=== PATIENT | female | born 1975 | race Caucasian/White ===

== ENCOUNTER 2018-09-13 21:48 | Inpatient (IN) | payer BC ==
[~2018-09-13] VITALS: Ht 157.5 cm; Wt 85.5 kg
[2018-09-13 22:00] VITALS: Ht 157.5 cm; Wt 85.5 kg
[2018-09-14] VITALS (41 sets, daily range): BP systolic 116–166; BP diastolic 67–91; PULSE 60–133; RESP 10–28
[2018-09-14] MEDS ORDERED: ONDANSETRON (ODT) 4 MG TAB ODT STA (01:08)
[2018-09-14] MEDS ORDERED: morphine 4 MG/ML VIAL IM STA (01:08)
[2018-09-14] MEDS ORDERED: morphine 4 MG/ML VIAL IV STA ×2 (01:15→04:36)
[2018-09-14] MEDS ORDERED: ONDANSETRON 4 MG INJ IV STA (01:15)
[2018-09-14] MEDS ORDERED: DEXAMETHASONE 10 MG/ML 1 ML INJ IM ONE (01:30)
--- NOTE | 2018-09-14 04:29 | ERD ---
ER Documentation Chief Complaint Chief Complaint low back pain radiating to both legs, worse x 4 days HPI 43-year-old female with past medical history of back surgery, hyperlipidemia, migraine presents for low back pain x4 days. States that the pain is 10 out of 10, described as sharp and constant. The pain is worse with movement. There is also radiation to her bilateral lower legs. She states that she sees Dr. Zamorano, neurosurgery. She called him and it was suggested that she come to the ER. She denies any fevers or chills. Denies any abdominal pain nausea or vomiting. She further denies any recent back procedures, denies recent infection, denies history of cancer. She denies loss of bowel bladder function. She has prescriptions for Percocet at home for which she has been taking however she states it is not helping. No other modifying factors noted, no other treatments tried at home. ROS All systems reviewed and are negative except as per history of present illness. Allergies Allergies: Coded Allergies: No Known Allergy (Unverified , 09/13/18) PMhx/Soc History of Surgery: Yes (2 BACK SX, HYST, L. KNEE, B. CARPAL TUNNEL) Anesthesia Reaction: No Hx Neurological Disorder: Yes (TIA) Hx Respiratory Disorders: No Hx Cardiac Disorders: Yes (HIGH CHOL) Hx Psychiatric Problems: No Hx Miscellaneous Medical Probl: No Hx Alcohol Use: No Hx Substance Use: No Hx Tobacco Use: No Smoking Status: Never smoker FmHx Family History: No coronary disease Physical Exam Vitals Vital Signs Date Temp Pulse Resp B/P (MAP) Pulse Ox O2 O2 Flow FiO2 Time Delivery Rate 09/14/18 64 16 122/89 100 Room Air 05:35 (100) 09/14/18 98.2 78 16 115/69 97 Room Air 02:49 (84) 09/13/18 98.2 97 18 138/88 97 22:00 (105) Physical Exam Const: No acute distress Neck: Full range of motion. No meningismus. no midline tenderness Resp: Clear to auscultation bilaterally Cardio: Regular rate and rhythm, no murmurs, bilateral radial and dorsalis pedis pulses intact and equal Abd: Soft, non tender, non distended. Normal bowel sounds, no abdominal bruit noted Skin: No petechiae or rashes Back: There is diffuse tenderness palpation of the lumbar spine Ext: No cyanosis, or edema, 5/5 muscle strength bilateral upper and lower extremities Neur: Awake and alert, bilateral upper and lower extremity sensation intact Psych: Normal Mood and Affect Result Diagram: 09/14/18 0123 09/14/18 0123 Results 24 hrs Laboratory Tests Test 09/14/18 01:23 White Blood Count 11.8 10^3/ul Red Blood Count 4.42 10^6/ul Hemoglobin 13.2 g/dl Hematocrit 40.0 % Mean Corpuscular Volume 90.5 fl Mean Corpuscular Hemoglobin 29.9 pg Mean Corpuscular Hemoglobin Concent 33.0 g/dl Red Cell Distribution Width 12.6 % Platelet Count 319 10^3/UL Mean Platelet Volume 9.9 fl Immature Granulocytes % 0.300 % Neutrophils % 51.5 % Lymphocytes % 37.9 % Monocytes % 6.6 % Eosinophils % 2.9 % Basophils % 0.8 % Nucleated Red Blood Cells % 0.0 /100WBC Immature Granulocytes # 0.040 10^3/ul Neutrophils # 6.1 10^3/ul Lymphocytes # 4.5 10^3/ul Monocytes # 0.8 10^3/ul Eosinophils # 0.3 10^3/ul Basophils # 0.1 10^3/ul Nucleated Red Blood Cells # 0.0 10^3/ul Sodium Level 145 mmol/L Potassium Level 3.8 mmol/L Chloride Level 106 mmol/L Carbon Dioxide Level 28 mmol/L Anion Gap 11 Blood Urea Nitrogen 18 mg/dl Creatinine 0.78 mg/dl Est Glomerular Filtrat Rate mL/min > 60 mL/min Glucose Level 105 mg/dl Calcium Level 9.7 mg/dl Total Bilirubin 0.4 mg/dl Direct Bilirubin 0.00 mg/dl Indirect Bilirubin 0.4 mg/dl Aspartate Amino Transf (AST/SGOT) 34 IU/L Alanine Aminotransferase (ALT/SGPT) 31 IU/L Alkaline Phosphatase 109 IU/L Total Protein 8.2 g/dl Albumin 4.7 g/dl Globulin 3.50 g/dl Albumin/Globulin Ratio 1.34 Current Medications Medications Dose Sig/Rosa Start Time Status Last (Trade) Ordered Route PRN Stop Time Admin Dose Reason Admin Morphine 4 mg ONCE STAT 09/14/18 DC Sulfate IM 01:08 (morphine) 09/14/18 04:37 Ondansetron 4 mg ONCE STAT 09/14/18 DC HCl (Zofran ODT 01:08 Odt) 09/14/18 01:16 10 mg ONCE ONCE 09/14/18 DC Dexamethasone IM 01:30 (Decadron) 09/14/18 01:30 Morphine 4 mg ONCE STAT 09/14/18 DC 09/14/18 Sulfate IV 01:15 01:24 (morphine) 09/14/18 01:17 Ondansetron 4 mg ONCE STAT 09/14/18 DC 09/14/18 HCl (Zofran IV 01:15 01:24 Inj) 09/14/18 01:17 Morphine 4 mg ONCE STAT 09/14/18 DC 09/14/18 Sulfate IV 04:36 04:40 (morphine) 09/14/18 04:37 Ondansetron 4 mg BRIDGE ORDER 09/14/18 HCl (Zofran PRN IV 05:00 Inj) NAUSEA/VOMITI 09/15/18 04:59 NG 650 mg ER BRIDGE 09/14/18 Acetaminophen PRN PO 05:00 (Tylenol .MILD PAIN 09/15/18 04:59 Tab) 1-3 OR TEMP Procedures/MDM Medical Decision Making: Differential diagnosis includes but not limited to muscle strain, ligamentous sprain, epidural abscess, osteomyelitis, osteoarthritis, herniated disc, compression fracture, aortic aneurysm, kidney stone, pyelonephritis, pancreatitis. Patient appeared well on physical examination. Nontoxic appearing. No recent back procedure, therefore low suspicion for epidural abscess No recent infection, therefore low suspicion for osteomyelitis No trauma, therefore low suspicion for fracture No chest pain, abdominal pain and no pulse deficits noted, therefore low suspicion for aortic dissection or pancreatitis No flank pain or fever to suggest pyelonephritis or kidney stone Lab: CBC: no e/o of severe anemia, WBC mildly elevated at 11 CMP: no e/o severe acidosis, alkalosis, renal failure, diabetic ketoacidosis, liver disease ED course: Patient was given morphine, zofran and steroid Symptoms improved with treatment however patient required multiple doses of IV pain medication. Case was discussed with Dr. Zamorano neurosurgeon who want to admitted for pain control Hospitalist Dr. Llanos contacted and agreed to admit patient for further care. Disclaimer: Inadvertent spelling and grammatical errors are likely due to EHR/dictation software use and do not reflect on the overall quality of patient care. Also, please note that the electronic time recorded on this note does not necessarily reflect the actual time of the patient encounter. KELSIE ALVES DO Sep 14, 2018 04:29
[2018-09-14] MEDS ORDERED: ACETAMINOPHEN 325 MG TAB PO PRN (05:00)
[2018-09-14] MEDS ORDERED: ONDANSETRON 4 MG INJ IV PRN ×2 (05:00→11:30)
[2018-09-14] MEDS ORDERED: SEVOFLURANE 15 MIN ONE (07:00)
--- NOTE | 2018-09-14 09:32 | PREAC ---
Date/Time of Note Date/Time of Note DATE: 09/14/18 TIME: 09:29 Anesthesia Eval and Record Evaluation Time Pre-Procedure Interview DATE: 09/14/18 TIME: 09:29 Age 43 Sex female NPO: 8 hrs Preoperative diagnosis mechanical low back pain Planned procedure anterior lumbar corpectomy discectomy and fusion L3-S1 Past Medical History Past Medical History: Includes Cardio: Dyslipidemia Neuro: Other (migraines) GI: Obesity Surgery & Anesthesia Issues No known issue Meds Anticoagulation: No Beta Марина within 24 hr: No Reason Beta Марина not given: Pt. not on B-Марина Unable to Obtain Active Prescriptions or Reported Meds Meds reviewed: Yes Allergies Coded Allergies: No Known Allergy (Unverified , 09/13/18) Allergies Reviewed: Yes Labs/Studies Labs Reviewed: Reviewed by anesthesiologist Result Diagram: 09/14/18 0123 09/14/18 0123 Laboratory Tests 09/14/18 01:23 Blood Bank Test 09/14/18 08:48 Blood Product Summary Counts test: N/A (s/p hysterectomy) Pre-procedure Exam Last vitals Vital Signs Date Temp Pulse Resp B/P (MAP) Pulse Ox O2 O2 Flow FiO2 Time Delivery Rate 09/14/18 97.9 65 18 119/67 93 Room Air 08:34 (84) Airway: Adequate mouth opening, Adequate thyromental dist Mallampati: Mallampati II Teeth: Normal Lung: Normal Heart: Normal ASA Physical Status ASA physical status: 2 Emergency: None Planned Anesthetic General/MAC: ETT, A Line Planned Pain Management Parenteral pain med Pre-operative Attestations Prior to commencing anesthesia and surgery, the patient was re-evaluated, there was verification of: *The patient's identity *The results of appropriate recent lab work and preoperative vital signs *The above evaluation not changing prior to induction *Anesthetic plan, risk benefits, alternative and complications discussed with patient/family; questions answered; patient/family understands, accepts and wishes to proceed. KATE BARRY MD Sep 14, 2018 09:32
[2018-09-14] MEDS ORDERED: CEFAZOLIN 1 GM INJ ONE (09:46)
[2018-09-14] MEDS ORDERED: GELATIN SIZE 100 SPONGE ONE (09:46)
[2018-09-14] MEDS ORDERED: THROMBIN 5000 UNIT VIAL ONE (09:46)
[2018-09-14] MEDS ORDERED: HEPARIN 1000 UNITS/ML 10 ML INJ ONE (09:47)
--- NOTE | 2018-09-14 10:10 | HPN ---
Date/Time of Note Date/Time of Note DATE: 09/14/18 TIME: 10:04 Interval H&P Admission Note Pt. seen H&P reviewed: No system changes Neurosurgery Preop Note No significant cahgne Pls refer to my written H&P in chart Plan: Candidate for staged procedure with L3-S1 ALIF today with posterior fixation tomorrow 09/15/18. Extensive d/w patient about all available options including surgery vs no surgery. Overall risk/complications 3-5% & benefits discussed as preprinted in my office consent form. All questions answered and no guarantees given. BLAINE LOWERY MD Sep 14, 2018 10:10
[2018-09-14] MEDS ORDERED: LIDOCAINE 2% (SDV) 5 ML INJ ONE (10:13)
[2018-09-14] MEDS ORDERED: MIDAZOLAM 1 MG/ML 2 ML INJ ONE (10:13)
[2018-09-14] MEDS ORDERED: PROPOFOL 20 ML ONE ×2 (10:13→11:16)
[2018-09-14] MEDS ORDERED: ONDANSETRON 4 MG INJ ONE (11:07)
[2018-09-14] MEDS ORDERED: FAMOTIDINE 20 MG INJ ONE (11:07)
[2018-09-14] MEDS ORDERED: DEXAMETHASONE 4 MG/ML 5 ML INJ ONE (11:07)
[2018-09-14] MEDS ORDERED: PHENYLephrine (100 MCG/ML) 10ML SYG ONE (11:16)
[2018-09-14] MEDS ORDERED: ROCURONIUM 50 MG INJ ONE ×2 (11:19→12:11)
[2018-09-14] MEDS ORDERED: SUCCINYLCHOLINE CHLORIDE 100 MG/5 ML SYG IV ONE (11:19)
[2018-09-14] MEDS ORDERED: EPHEDrine 25 MG/5 ML SYG IV PRN (11:30)
[2018-09-14] MEDS ORDERED: hydrALAzine 20 MG INJ IV PRN (11:30)
[2018-09-14] MEDS ORDERED: PROCHLORPERAZINE 10 MG INJ IV PRN (11:30)
[2018-09-14] MEDS ORDERED: HYDROmorphONE 1 MG/5 ML IV SYRINGE IV PRN ×3 (11:30)
[2018-09-14] MEDS ORDERED: MIDAZOLAM 1 MG/ML 2 ML INJ IV PRN (11:30)
[2018-09-14] MEDS ORDERED: FENTAnyl 50 MCG/ML VIAL IV PRN ×3 (11:30)
[2018-09-14] MEDS ORDERED: LABETALOL HCL 20MG INJ IV PRN (11:30)
[2018-09-14] MEDS ORDERED: DIPHENHYDRAMINE 50 MG INJ IV PRN (11:30)
[2018-09-14] MEDS ORDERED: MEPERIDINE 25 MG INJ IV PRN (11:30)
[2018-09-14] MEDS ORDERED: NACL 0.9% 3 ML SYG IV SCH (12:00)
[2018-09-14] MEDS ORDERED: NALOXONE (0.4 MG/ML) INJ IV PRN (12:00)
[2018-09-14] MEDS ORDERED: GLYCOPYRROLATE 0.4 MG INJ ONE ×2 (13:05→13:08)
[2018-09-14] MEDS ORDERED: HYDROmorphONE 2 MG/ML SYG ONE (13:05)
[2018-09-14] MEDS ORDERED: NEOSTIGMINE 3 MG/3 ML SYRINGE ONE ×2 (13:05→13:08)
[2018-09-14] MEDS ORDERED: SUGAMMADEX SODIUM 200 MG/2 ML VIAL IV ONE (13:15)
--- NOTE | 2018-09-14 13:16 | OPPN ---
Date/Time of Note Date/Time of Note DATE: 09/14/18 TIME: 13:14 Operative Report Preoperative Diagnosis Mechanical LBP and LE radiculopathy Postoperative Diagnosis Same Operation/Procedure Performed ALIF L3-S1 Surgeon see signature line assisted living coordinator Malekmehr Second assist: KYLEE FUCHS NP Anesthesia: general Estimated blood loss: 250 - 300 ml's Transfusion Required none Specimen sent Grafts/Implants PEEK cages, formagraft, titanium screws, allograft bone Complications none BLAINE LOWERY MD Sep 14, 2018 13:16
[2018-09-14] MEDS ORDERED: BACITRACIN/POLYMYXIN 28.35 GM OINT TOP ONE (13:23)
[2018-09-14] MEDS ORDERED: CEFAZOLIN 2 GM/50 ML (PMX) 50 ML IVPB ONE (13:30)
[2018-09-14] MEDS: NS + KCL 20 MEQ 1,000 ML IV SCH (13:30)
--- NOTE | 2018-09-14 13:59 | PAC ---
Date/Time of Note Date/Time of Note DATE: 09/14/18 TIME: 13:58 Post-Anesthesia Notes Post-Anesthesia Note Last documented vital signs Vital Signs Date Temp Pulse Resp B/P (MAP) Pulse Ox O2 O2 Flow FiO2 Time Delivery Rate 09/14/18 97.9 65 18 119/67 93 Room Air 08:34 (84) Activity: WNL Respiratory function: WNL Cardiovascular function: WNL Mental status: Baseline Pain reasonably controlled: Yes Hydration appropriate: Yes Nausea/Vomiting absent: Yes Comments BP: 135/87 HR: 88 RR: 15 T: 99.5 SaO2: 100% KATE BARRY MD Sep 14, 2018 13:59
[2018-09-14] MEDS: HYDROmorphONE 0.2 MG/ML PCA IV SCH ×2 (14:17→22:26)
[2018-09-14] MEDS: DOCUSATE SODIUM 100 MG CAP PO SCH ×2 (14:52→21:51)
--- NOTE | 2018-09-14 16:42 | HP ---
Date/Time of Note Date/Time of Note DATE: 09/14/18 TIME: 16:36 Assessment/Plan VTE Prophylaxis Pharmacological prophylaxis: NA/contraindicated Pharm contraindication: surgical contra Lines/Catheters IV Catheter Type (from Nrsg): Peripheral IV Urinary Cath still in place: No Assessment/Plan Assessment/Plan -Mechanical LBP and LE radiculopathy. S/p ALIF L3-S1 Dr. Zamorano on 09/14/2018. Continue IV fluids and postoperative antibiotics. Continue HYDRAULIC MINER Dilaudid as needed for pain and Zofran as needed for nausea. Patient will undergo posterior part of the surgery tomorrow morning. Further commendations based on clinical course. Plan of care discussed with Dr. Mortensen. Result Diagram: 09/14/18 0123 09/14/18 0123 Results 24hrs Laboratory Tests Test 09/14/18 01:23 White Blood Count 11.8 H Red Blood Count 4.42 Hemoglobin 13.2 Hematocrit 40.0 Mean Corpuscular Volume 90.5 Mean Corpuscular Hemoglobin 29.9 Mean Corpuscular Hemoglobin Concent 33.0 Red Cell Distribution Width 12.6 Platelet Count 319 Mean Platelet Volume 9.9 Immature Granulocytes % 0.300 Neutrophils % 51.5 Lymphocytes % 37.9 Monocytes % 6.6 Eosinophils % 2.9 Basophils % 0.8 Nucleated Red Blood Cells % 0.0 Immature Granulocytes # 0.040 H Neutrophils # 6.1 Lymphocytes # 4.5 H Monocytes # 0.8 Eosinophils # 0.3 Basophils # 0.1 Nucleated Red Blood Cells # 0.0 Sodium Level 145 H Potassium Level 3.8 Chloride Level 106 Carbon Dioxide Level 28 Anion Gap 11 Blood Urea Nitrogen 18 Creatinine 0.78 Est Glomerular Filtrat Rate mL/min > 60 Glucose Level 105 Calcium Level 9.7 Total Bilirubin 0.4 Direct Bilirubin 0.00 Indirect Bilirubin 0.4 Aspartate Amino Transf (AST/SGOT) 34 Alanine Aminotransferase (ALT/SGPT) 31 Alkaline Phosphatase 109 Total Protein 8.2 H Albumin 4.7 Globulin 3.50 H Albumin/Globulin Ratio 1.34 HPI/ROS Admit Date/Time Admit Date/Time Sep 14, 2018 at 04:45 Hx of Present Illness Patient is 43-year-old female with history of hyper cholesterolemia, migraines, fibromyalgia and chronic back pain with history of lumbar spine surgery was evaluated by Dr. Zamorano in neurosurgery consultation for severe lower back pain which got extremely worse over the last 4 days with radiation to bilateral lower extremities. Patient presented to the emergency room with complaint of intractable lower back pain requiring IV pain medication. Patient was evaluated by Dr. Zamorano and was taking 2 operating room and underwent anterior lumbar interbody fusion of L3-S1. She is seen in ICU. Patient is currently on Dilaudid HYDRAULIC MINER for pain control. Patient is awake alert denies any chest pain denies shortness of breath. ROS 12 point review of system is negative except for what mentioned in HPI PMH/Family/Social Past Medical History Medical History: high cholesterol, other (Fibromyalgia, migraines) Medications Current Medications Acetaminophen/ Hydrocodone Bitart ([place] (5/325)) 1 tab Q4H PRN PO .PAIN 1-5; Start 09/14/18 at 12:00 Al Hydrox/Mg Hydrox/Simethicone (Mag-Al Plus) 15 ml Q4H PRN PO .CONSTIPATION; Start 09/14/18 at 12:00 Docusate Sodium (Colace) 100 mg BID PO Last administered on 09/14/18at 14:52; Admin Dose 100 MG; Start 09/14/18 at 13:00 IV Flush (NS 3 ml) 3 ml PER PROTOCOL IV ; Start 09/14/18 at 12:00 Hydromorphone HCl (Dilaudid HYDRAULIC MINER) Q4PCA IV Last administered on 09/14/18at 14:17; Admin Dose 6 MG; Start 09/14/18 at 12:00 Naloxone HCl (Narcan) 0.2 mg Q2M PRN IV RR 8 BREATHS/MIN OR LESS; Start 09/14/18 at 12:00 Potassium Chloride/Sodium Chloride 1,000 ml @ 100 mls/hr Q10H IV ; Start 09/14/18 at 13:30 Coded Allergies: No Known Allergy (Unverified , 09/13/18) Past Surgical History Past Surgical Hx: other (Prior lower back surgery many years ago) Family History Significant Family History: no pertinent family hx Social History Alcohol Use: none Smoking Status: Never smoker Drug Use: none Exam/Review of Systems Vital Signs Vitals Vital Signs Date Temp Pulse Resp B/P (MAP) Pulse Ox O2 O2 Flow FiO2 Time Delivery Rate 09/14/18 94 14 116/76 99 Nasal 2.0 15:53 (89) Cannula 09/14/18 99.0 15:44 Exam Constitutional: alert, oriented Head: normocephalic Neck: supple Respiratory: clear to auscultation Cardiovascular: regular rate and rhythm Gastrointestinal: soft, non-tender, other (Status post surgery) Genitourinary - Female: other (Lozoya catheter) Musculoskeletal: nl extremities to inspection Extremities: normal pulses Neurological: nl mental status Skin: nl ERIKA Lee Sep 14, 2018 16:42
--- NOTE | 2018-09-14 18:41 | PREAC ---
Date/Time of Note Date/Time of Note DATE: 09/14/18 TIME: 18:40 Anesthesia Eval and Record Evaluation Time Pre-Procedure Interview DATE: 09/14/18 TIME: 18:40 Age 43 Sex female NPO: 8 hrs Preoperative diagnosis LOW BACK PAIN Planned procedure BILATERAL L3-LS1 POSTERIOR LUMBAR LAMINECTOMY Past Medical History Past Medical History: Includes GI: Obesity Surgery & Anesthesia Issues No known issue Meds Anticoagulation: No Beta Марина within 24 hr: No Reason Beta Марина not given: Pt. not on B-Марина Unable to Obtain Active Prescriptions or Reported Meds Current Medications Acetaminophen/ Hydrocodone Bitart ([place] (5/325)) 1 tab Q4H PRN PO .PAIN 1-5; Start 09/14/18 at 12:00 Al Hydrox/Mg Hydrox/Simethicone (Mag-Al Plus) 15 ml Q4H PRN PO .CONSTIPATION; Start 09/14/18 at 12:00 Docusate Sodium (Colace) 100 mg BID PO Last administered on 09/14/18at 14:52; Admin Dose 100 MG; Start 09/14/18 at 13:00 IV Flush (NS 3 ml) 3 ml PER PROTOCOL IV ; Start 09/14/18 at 12:00 Hydromorphone HCl (Dilaudid OUTSIDE DELIVERER) Q4PCA IV Last administered on 09/14/18at 14:17; Admin Dose 6 MG; Start 09/14/18 at 12:00 Naloxone HCl (Narcan) 0.2 mg Q2M PRN IV RR 8 BREATHS/MIN OR LESS; Start 09/14/18 at 12:00 Potassium Chloride/Sodium Chloride 1,000 ml @ 100 mls/hr Q10H IV Last administered on 09/14/18at 13:30; Admin Dose 100 MLS/HR; Start 09/14/18 at 13:30 Meds reviewed: Yes Allergies Coded Allergies: No Known Allergy (Unverified , 09/13/18) Allergies Reviewed: Yes Labs/Studies Labs Reviewed: Reviewed by anesthesiologist Result Diagram: 09/14/1812209/14/18 0123 Laboratory Tests 09/14/18 01:23 Blood Bank Test 09/14/18 09:13 Antibody Screen NEGATIVE Blood Product Summary Counts Blood Type O POSITIVE Crossmatch Red Blood Cells test: N/A (s/p hysterectomy) Pre-procedure Exam Last vitals Vital Signs Date Temp Pulse Resp B/P (MAP) Pulse Ox O2 O2 Flow FiO2 Time Delivery Rate 09/14/18 2.0 17:00 09/14/18 72 16:20 09/14/18 14 116/76 99 Nasal 15:53 (89) Cannula 09/14/18 99.0 15:44 Airway: Adequate mouth opening Mallampati: Mallampati II Teeth: Normal Lung: Normal Heart: Normal ASA Physical Status ASA physical status: 2 Emergency: None Planned Anesthetic General/MAC: ETT Pre-operative Attestations Prior to commencing anesthesia and surgery, the patient was re-evaluated, there was verification of: *The patient's identity *The results of appropriate recent lab work and preoperative vital signs *The above evaluation not changing prior to induction *Anesthetic plan, risk benefits, alternative and complications discussed with patient/family; questions answered; patient/family understands, accepts and wishes to proceed. AVERY CAMEJO Sep 14, 2018 18:41
[2018-09-14] MEDS ORDERED: ADENOSINE 6 MG INJ IV ONE (23:30)
[2018-09-15] VITALS (56 sets, daily range): BP systolic 88–153; BP diastolic 60–90; PULSE 75–118; RESP 9–31
[2018-09-15] MEDS: NS + KCL 20 MEQ 1,000 ML IV SCH ×2 (03:44→09:30)
[2018-09-15] MEDS ORDERED: ROPIVACAINE 0.5 % 30 ML VIAL ONE ×2 (06:59→07:01)
[2018-09-15] MEDS ORDERED: POLYMYXIN/BACITRACIN 1L IRRIG ONE (07:01)
[2018-09-15] MEDS ORDERED: CEFAZOLIN 1 GM INJ ONE (07:33)
[2018-09-15] MEDS ORDERED: ROCURONIUM 50 MG INJ ONE (07:33)
[2018-09-15] MEDS ORDERED: MIDAZOLAM 1 MG/ML 2 ML INJ ONE (07:33)
[2018-09-15] MEDS ORDERED: PROPOFOL 20 ML ONE (07:33)
--- NOTE | 2018-09-15 07:42 | HPN ---
Date/Time of Note Date/Time of Note DATE: 09/15/18 TIME: 07:36 Interval H&P Admission Note Pt. seen H&P reviewed: No system changes Neurosurgery Preop Note Extensive d/w patient about all available options including surgery vs no surgery . Overall risk/complications 3-5% and benefits thoroughly discussed. All questions answered and no guarantees given. BLAINE LOWERY MD Sep 15, 2018 07:42
[2018-09-15] MEDS ORDERED: THROMBIN 5000 UNIT VIAL ONE (08:19)
[2018-09-15] MEDS ORDERED: DEXAMETHASONE 4 MG/ML 5 ML INJ ONE (08:34)
[2018-09-15] MEDS ORDERED: METOCLOPRAMIDE 10 MG INJ ONE (08:34)
[2018-09-15] MEDS ORDERED: ONDANSETRON 4 MG INJ ONE (08:34)
[2018-09-15] MEDS ORDERED: GELATIN COMPRESSED 100CM SPONGE TOP ONE (08:58)
[2018-09-15] MEDS: DOCUSATE SODIUM 100 MG CAP PO SCH ×2 (09:00→21:24)
[2018-09-15] MEDS ORDERED: SUGAMMADEX SODIUM 200 MG/2 ML VIAL IV ONE (09:42)
--- NOTE | 2018-09-15 09:55 | OPPN ---
Date/Time of Note Date/Time of Note DATE: 09/15/18 TIME: 09:53 Operative Report Preoperative Diagnosis Mechanical LBP with LE Radiculopathy Postoperative Diagnosis same Operation/Procedure Performed Bilateral L3-S1 ISF Placement. Surgeon see signature line drafter assistant YENNIFER Esparza, ACNP-BC Anesthesia: general Estimated blood loss: 10 - 50 ml's Transfusion Required none Specimen none Grafts/Implants none Complications none BLAINE LOWERY MD Sep 15, 2018 09:55
--- NOTE | 2018-09-15 10:06 | PAC ---
Date/Time of Note Date/Time of Note DATE: 09/15/18 TIME: 10:04 Post-Anesthesia Notes Post-Anesthesia Note Last documented vital signs Vital Signs Date Temp Pulse Resp B/P (MAP) Pulse Ox O2 O2 Flow FiO2 Time Delivery Rate 09/15/18 91 18 119/70 98 Nasal 06:45 (86) Cannula 09/15/18 97.5 102 16 125/90(107 97 Face Mask 10:05 ) 09/14/18 2.0 22:15 Activity: WNL Respiratory function: WNL Cardiovascular function: WNL Mental status: Baseline Pain reasonably controlled: Yes Hydration appropriate: Yes Nausea/Vomiting absent: Yes LONG CASTILLO MD Sep 15, 2018 10:06
[2018-09-15] MEDS ORDERED: HYDROmorphONE 0.5 MG/0.5 ML SYG IV PRN ×2 (10:30)
[2018-09-15] MEDS ORDERED: ONDANSETRON 4 MG INJ IV PRN (10:30)
[2018-09-15] MEDS ORDERED: hydrALAzine 20 MG INJ IV PRN (10:30)
[2018-09-15] MEDS ORDERED: EPHEDrine 25 MG/5 ML SYG IV PRN (10:30)
[2018-09-15] MEDS ORDERED: METOCLOPRAMIDE 10 MG INJ IV PRN (10:30)
[2018-09-15] MEDS ORDERED: FENTAnyl 50 MCG/ML VIAL IV PRN ×2 (10:30)
[2018-09-15] MEDS ORDERED: LABETALOL HCL 20MG INJ IV PRN (10:30)
[2018-09-15] MEDS: HYDROmorphONE 0.2 MG/ML PCA IV SCH ×2 (10:31→19:13)
[2018-09-15] MEDS: LACTATED RINGER'S 1,000 ML IV SCH ×2 (12:55→19:54)
--- NOTE | 2018-09-15 13:33 | PN ---
Date/Time of Note Date/Time of Note DATE: 09/15/18 TIME: 13:30 Assessment/Plan VTE Prophylaxis Risk score (from Ns)>0 risk: 10 SCD applied (from Ns): Yes Pharmacological prophylaxis: NA/contraindicated Pharm contraindication: surgical contra Lines/Catheters IV Catheter Type (from Nrsg): A Line Urinary Cath still in place: Yes Reason Cath still needed: urinary retention Assessment/Plan Hospital Course Status post posterior completion of lumbar surgery, patient is awake alert, pain is controlled with CLIENT ACCOUNT SPECIALIST Dilaudid, resume clear liquid diet. Continue ICU monitoring. Assessment/Plan -Mechanical LBP and LE radiculopathy. S/p ALIF L3-S1 on 09/14/2018 and s/p Bilateral L3-S1 ISF Placement on 09/15/[address] Zamorano. Continue IV fluids and postoperative antibiotics. Continue CLIENT ACCOUNT SPECIALIST Dilaudid as needed for pain and Zofran as needed for nausea. Patient will undergo posterior part of the surgery tomorrow morning. Further commendations based on clinical course. Plan of care discussed with Dr. Mortensen. Result Diagram: 09/15/18 0430 09/15/18 0430 Results 24hrs Laboratory Tests Test 09/15/18 04:30 Hemoglobin 11.3 L Hematocrit 34.9 L Sodium Level 140 Potassium Level 4.2 Chloride Level 108 Carbon Dioxide Level 26 Anion Gap 6 Blood Urea Nitrogen 12 Creatinine 0.71 Est Glomerular Filtrat Rate mL/min > 60 Glucose Level 128 Calcium Level 8.5 Exam/Review of Systems Exam Vitals Vital Signs Date Temp Pulse Resp B/P (MAP) Pulse Ox O2 O2 Flow FiO2 Time Delivery Rate 09/15/18 79 12:00 09/15/18 Simple 6.0 11:00 Mask 09/15/18 14 102/75 99 10:45 (84) 09/15/18 97.5 10:00 Intake and Output 09/14/18 09/14/18 09/15/18 1515:00 23:00 07:00 IntakeIntake Total 1350 ml 1290 ml 700 ml OutputOutput Total 225 ml 460 ml 310 ml BalanceBalance 1125 ml 830 ml 390 ml Exam Constitutional: alert, oriented Respiratory: clear to auscultation Cardiovascular: regular rate and rhythm Gastrointestinal: soft, non-tender, other (Status post surgery) Genitourinary - Female: other (Lozoya catheter) Musculoskeletal: nl extremities to inspection, (Status post low back surgery, BERYL drain) Extremities: normal pulses Neurological: nl mental status Results Results 24hrs Laboratory Tests Test 09/15/18 04:30 Hemoglobin 11.3 L Hematocrit 34.9 L Sodium Level 140 Potassium Level 4.2 Chloride Level 108 Carbon Dioxide Level 26 Anion Gap 6 Blood Urea Nitrogen 12 Creatinine 0.71 Est Glomerular Filtrat Rate mL/min > 60 Glucose Level 128 Calcium Level 8.5 Medications Medication Current Medications Acetaminophen/ Hydrocodone Bitart ([place] (5/325)) 1 tab Q4H PRN PO .PAIN 1-5; Start 09/14/18 at 12:00 Al Hydrox/Mg Hydrox/Simethicone (Mag-Al Plus) 15 ml Q4H PRN PO .CONSTIPATION; Start 09/14/18 at 12:00 Docusate Sodium (Colace) 100 mg BID PO Last administered on 09/14/18at 21:51; Admin Dose 100 MG; Start 09/14/18 at 13:00 IV Flush (NS 3 ml) 3 ml PER PROTOCOL IV ; Start 09/14/18 at 12:00 Hydromorphone HCl (Dilaudid CLIENT ACCOUNT SPECIALIST) Q4PCA IV Last administered on 09/15/18at 10:31; Admin Dose 6 MG; Start 09/14/18 at 12:00 Naloxone HCl (Narcan) 0.2 mg Q2M PRN IV RR 8 BREATHS/MIN OR LESS; Start at 12:00 Hydromorphone HCl (Dilaudid) 0.2 mg ICU RECOVERY PRN IV MILD PAIN LEVEL 1-3; Start 09/15/18 at 10:30; Stop 09/15/18 at 14:00 Hydromorphone HCl (Dilaudid) 0.4 mg ICU RECOVERY PRN IV MODERATE PAIN LEVEL 4-6; Start 09/15/18 at 10:30; Stop 09/15/18 at 14:00 Fentanyl (Sublimaze) 25 mcg ICU RECOVERY PRN IV MILD PAIN LEVEL 1-3; Start 09/15/18 at 10:30; Stop 09/15/18 at 14:00 Fentanyl (Sublimaze) 50 mcg ICU RECOVERY PRN IV MODERATE PAIN LEVEL 4-6 Last administered on 09/15/18at 13:05; Admin Dose 50 MCG; Start 09/15/18 at 10:30; Stop 09/15/18 at 14:00 Ondansetron HCl (Zofran Inj) 4 mg ICU RECOVERY PRN IV NAUSEA/VOMITING; Start 09/15/18 at 10:30; Stop 09/15/18 at 14:00 Metoclopramide HCl (Reglan) 10 mg ICU RECOVERY PRN IV NAUSEA AND/OR VOMITING; Start 09/15/18 at 10:30; Stop 09/15/18 at 14:00 Labetalol HCl (Labetalol) 5 mg ICU RECOVERY PRN IV HIGH BLOOD PRESSURE; Start 09/15/18 at 10:30; Stop 09/15/18 at 14:00 Hydralazine HCl (Apresoline) 5 mg ICU RECOVERY PRN IV HIGH BLOOD PRESSURE; Start 09/15/18 at 10:30; Stop 09/15/18 at 14:00 Ephedrine Sulfate 5 mg PACU ORDER PRN IV BLOOD PRESSURRE SUPPORT; Start 09/15/18 at 10:30; Stop 09/15/18 at 14:00 Lactated Ringer's 1,000 ml @ 150 mls/hr Q6H40M IV Last administered on 09/15/18at 12:55; Admin Dose 150 MLS/HR; Start 09/15/18 at 13:00 ERIKA SOLITARIO Sep 15, 2018 13:33
[2018-09-15] MEDS: DIPHENHYDRAMINE 25 MG CAP PO PRN (21:23)
[2018-09-16] VITALS (29 sets, daily range): BP systolic 82–130; BP diastolic 59–83; PULSE 82–122; RESP 11–34
[2018-09-16] MEDS: DIPHENHYDRAMINE 25 MG CAP PO PRN ×2 (01:35→08:56)
[2018-09-16] MEDS: LACTATED RINGER'S 1,000 ML IV SCH ×4 (02:24→22:47)
[2018-09-16] MEDS ORDERED: LORAZEPAM 2 MG INJ IV PRN (03:00)
[2018-09-16] MEDS: HYDROmorphONE 0.2 MG/ML PCA IV SCH ×3 (04:10→17:00)
[2018-09-16] MEDS: DOCUSATE SODIUM 100 MG CAP PO SCH ×2 (08:57→22:47)
--- NOTE | 2018-09-16 13:56 | PN ---
Date/Time of Note Date/Time of Note DATE: 09/16/18 TIME: 13:56 Assessment/Plan VTE Prophylaxis Risk score (from Ns)>0 risk: 10 SCD applied (from Ns): Yes Lines/Catheters IV Catheter Type (from [facility]): A Line Urinary Cath still in place: Yes Assessment/Plan Result Diagram: 09/16/18 0440 09/16/18 0440 Results 24hrs Laboratory Tests Test 09/16/18 04:40 09/16/18 10:37 White Blood Count 18.1 #H Red Blood Count 3.15 #L Hemoglobin 9.3 L Hematocrit 28.9 L Mean Corpuscular Volume 91.7 Mean Corpuscular Hemoglobin 29.5 Mean Corpuscular Hemoglobin Concent 32.2 Red Cell Distribution Width 12.6 Platelet Count 214 # Mean Platelet Volume 10.7 H Immature Granulocytes % 0.400 Neutrophils % 78.3 H Lymphocytes % 12.7 L Monocytes % 8.4 Eosinophils % 0.0 Basophils % 0.2 Nucleated Red Blood Cells % 0.0 Immature Granulocytes # 0.080 H Neutrophils # 14.2 H Lymphocytes # 2.3 Monocytes # 1.5 H Eosinophils # 0.0 Basophils # 0.0 Nucleated Red Blood Cells # 0.0 Sodium Level 139 Potassium Level 3.7 Chloride Level 104 Carbon Dioxide Level 31 Anion Gap 4 L Blood Urea Nitrogen 7 Creatinine 0.55 Est Glomerular Filtrat Rate mL/min > 60 Glucose Level 108 Calcium Level 8.1 L Lactic Acid Level 1.5 Exam/Review of Systems Exam Vitals Vital Signs Date Temp Pulse Resp B/P (MAP) Pulse Ox O2 O2 Flow FiO2 Time Delivery Rate 09/16/18 20 12:00 09/16/18 95 12:00 09/16/18 110/65 94 Nasal 11:30 (80) Cannula 09/16/18 97.8 08:00 09/15/18 2.0 20:00 Intake and Output 09/15/18 09/15/18 09/16/18 1515:00 23:00 07:00 IntakeIntake Total 2050 ml 1560 ml 600 ml OutputOutput Total 900 ml 1170 ml 540 ml BalanceBalance 1150 ml 390 ml 60 ml Results Results 24hrs Laboratory Tests Test 09/16/18 04:40 09/16/18 10:37 White Blood Count 18.1 #H Red Blood Count 3.15 #L Hemoglobin 9.3 L Hematocrit 28.9 L Mean Corpuscular Volume 91.7 Mean Corpuscular Hemoglobin 29.5 Mean Corpuscular Hemoglobin Concent 32.2 Red Cell Distribution Width 12.6 Platelet Count 214 # Mean Platelet Volume 10.7 H Immature Granulocytes % 0.400 Neutrophils % 78.3 H Lymphocytes % 12.7 L Monocytes % 8.4 Eosinophils % 0.0 Basophils % 0.2 Nucleated Red Blood Cells % 0.0 Immature Granulocytes # 0.080 H Neutrophils # 14.2 H Lymphocytes # 2.3 Monocytes # 1.5 H Eosinophils # 0.0 Basophils # 0.0 Nucleated Red Blood Cells # 0.0 Sodium Level 139 Potassium Level 3.7 Chloride Level 104 Carbon Dioxide Level 31 Anion Gap 4 L Blood Urea Nitrogen 7 Creatinine 0.55 Est Glomerular Filtrat Rate mL/min > 60 Glucose Level 108 Calcium Level 8.1 L Lactic Acid Level 1.5 Medications Medication Current Medications Acetaminophen/ Hydrocodone Bitart ([place] (5/325)) 1 tab Q4H PRN PO .PAIN 1-5; Start 09/14/18 at 12:00 Al Hydrox/Mg Hydrox/Simethicone (Mag-Al Plus) 15 ml Q4H PRN PO .CONSTIPATION; Start 09/14/18 at 12:00 Docusate Sodium (Colace) 100 mg BID PO Last administered on 09/16/18at 08:57; Admin Dose 100 MG; Start 09/14/18 at 13:00 IV Flush (NS 3 ml) 3 ml PER PROTOCOL IV ; Start 09/14/18 at 12:00 Naloxone HCl (Narcan) 0.2 mg Q2M PRN IV RR 8 BREATHS/MIN OR LESS; Start 09/04 04/24 at 12:00 Lactated Ringer's 1,000 ml @ 150 mls/hr Q6H40M IV Last administered on 09/16/18at 08:57; Admin Dose 150 MLS/HR; Start 09/15/18 at 13:00 Hydromorphone HCl (Dilaudid SWITCH COUPLER) Q4PCA IV Last administered on 09/16/18at 11:00; Admin Dose 6 MG; Start 09/15/18 at 15:00 Diphenhydramine HCl (Benadryl) 25 mg Q6H PRN PO ITCHING Last administered on 09/16/18at 08:56; Admin Dose 25 MG; Start 09/15/18 at 21:00 BLAINE LOWERY MD Sep 16, 2018 13:56
[2018-09-16] MEDS ORDERED: DIPHENHYDRAMINE 50 MG CAP PO PRN (15:00)
--- NOTE | 2018-09-16 16:05 | PN ---
Date/Time of Note Date/Time of Note DATE: 09/16/18 TIME: 15:58 Assessment/Plan VTE Prophylaxis Risk score (from Ns)>0 risk: 10 SCD applied (from Ns): Yes Pharmacological prophylaxis: NA/contraindicated Pharm contraindication: surgical contra Lines/Catheters IV Catheter Type (from Nrsg): A Line Urinary Cath still in place: Yes Reason Cath still needed: urinary retention Assessment/Plan Hospital Course Patient continues on MORGUE ATTENDANT Dilaudid for pain control, continues on clear liquid diet. With episodes of tachycardia however blood pressure is stable, transfer to telemetry with current orders. Assessment/Plan - There is a suspected developing left pelvic sidewall abscess within the region of inflammation at the left pelvic sidewall per lumbar spine CT. Dr. Holly is asked to see patient in infection disease consultation. -Mechanical LBP and LE radiculopathy. S/p ALIF L3-S1 on 09/14/2018 and s/p Bilateral L3-S1 ISF Placement on 09/15/[address] Zamorano. Continue IV fluids and postoperative antibiotics. Continue MORGUE ATTENDANT Dilaudid as needed for pain and Zofran as needed for nausea. Patient will undergo posterior part of the surgery tomorrow morning. Further commendations based on clinical course. Plan of care discussed with Dr. Mortensen. Result Diagram: 09/16/18 0440 09/16/18 0440 Results 24hrs Laboratory Tests Test 09/16/18 04:40 09/16/18 10:37 White Blood Count 18.1 #H Red Blood Count 3.15 #L Hemoglobin 9.3 L Hematocrit 28.9 L Mean Corpuscular Volume 91.7 Mean Corpuscular Hemoglobin 29.5 Mean Corpuscular Hemoglobin Concent 32.2 Red Cell Distribution Width 12.6 Platelet Count 214 # Mean Platelet Volume 10.7 H Immature Granulocytes % 0.400 Neutrophils % 78.3 H Lymphocytes % 12.7 L Monocytes % 8.4 Eosinophils % 0.0 Basophils % 0.2 Nucleated Red Blood Cells % 0.0 Immature Granulocytes # 0.080 H Neutrophils # 14.2 H Lymphocytes # 2.3 Monocytes # 1.5 H Eosinophils # 0.0 Basophils # 0.0 Nucleated Red Blood Cells # 0.0 Sodium Level 139 Potassium Level 3.7 Chloride Level 104 Carbon Dioxide Level 31 Anion Gap 4 L Blood Urea Nitrogen 7 Creatinine 0.55 Est Glomerular Filtrat Rate mL/min > 60 Glucose Level 108 Calcium Level 8.1 L Lactic Acid Level 1.5 Exam/Review of Systems Exam Vitals Vital Signs Date Temp Pulse Resp B/P (MAP) Pulse Ox O2 O2 Flow FiO2 Time Delivery Rate 09/16/18 108 21 109/74 Nasal 15:00 (86) Cannula 09/16/18 97 14:30 09/16/18 97.8 12:00 09/15/18 2.0 20:00 Intake and Output 09/15/18 09/15/18 09/16/18 1515:00 23:00 07:00 IntakeIntake Total 2050 ml 1560 ml 600 ml OutputOutput Total 900 ml 1170 ml 540 ml BalanceBalance 1150 ml 390 ml 60 ml Exam Constitutional: alert, oriented Respiratory: clear to auscultation Cardiovascular: regular rate and rhythm Gastrointestinal: soft, non-tender, other (Status post surgery) Genitourinary - Female: other (Lozoya catheter) Musculoskeletal: nl extremities to inspection, (Status post low back surgery, BERYL drain) Extremities: normal pulses Neurological: nl mental status Results Results 24hrs Laboratory Tests Test 09/16/18 04:40 09/16/18 10:37 White Blood Count 18.1 #H Red Blood Count 3.15 #L Hemoglobin 9.3 L Hematocrit 28.9 L Mean Corpuscular Volume 91.7 Mean Corpuscular Hemoglobin 29.5 Mean Corpuscular Hemoglobin Concent 32.2 Red Cell Distribution Width 12.6 Platelet Count 214 # Mean Platelet Volume 10.7 H Immature Granulocytes % 0.400 Neutrophils % 78.3 H Lymphocytes % 12.7 L Monocytes % 8.4 Eosinophils % 0.0 Basophils % 0.2 Nucleated Red Blood Cells % 0.0 Immature Granulocytes # 0.080 H Neutrophils # 14.2 H Lymphocytes # 2.3 Monocytes # 1.5 H Eosinophils # 0.0 Basophils # 0.0 Nucleated Red Blood Cells # 0.0 Sodium Level 139 Potassium Level 3.7 Chloride Level 104 Carbon Dioxide Level 31 Anion Gap 4 L Blood Urea Nitrogen 7 Creatinine 0.55 Est Glomerular Filtrat Rate mL/min > 60 Glucose Level 108 Calcium Level 8.1 L Lactic Acid Level 1.5 Medications Medication Current Medications Acetaminophen/ Hydrocodone Bitart ([place] (5/325)) 1 tab Q4H PRN PO .PAIN 1-5; Start 09/14/18 at 12:00 Al Hydrox/Mg Hydrox/Simethicone (Mag-Al Plus) 15 ml Q4H PRN PO .CONSTIPATION; Start 09/14/18 at 12:00 Docusate Sodium (Colace) 100 mg BID PO Last administered on 09/16/18at 08:57; Admin Dose 100 MG; Start 09/14/18 at 13:00 IV Flush (NS 3 ml) 3 ml PER PROTOCOL IV ; Start 09/14/18 at 12:00 Naloxone HCl (Narcan) 0.2 mg Q2M PRN IV RR 8 BREATHS/MIN OR LESS; Start 09/14/18 at 12:00 Lactated Ringer's 1,000 ml @ 150 mls/hr Q6H40M IV Last administered on 09/16/18at 15:15; Admin Dose 150 MLS/HR; Start 09/15/18 at 13:00 Hydromorphone HCl (Dilaudid MORGUE ATTENDANT) Q4PCA IV Last administered on 09/16/18at 11:00; Admin Dose 6 MG; Start 09/15/18 at 15:00 Diphenhydramine HCl (Benadryl) 50 mg Q6H PRN PO ITCHING; Start 09/16/18 at 15:00 ERIKA SOLITARIO Sep 16, 2018 16:05
--- NOTE | 2018-09-16 16:56 | CONS ---
DATE OF ADMISSION: 09/14/2018 DATE OF CONSULTATION: 09/16/2018 TYPE OF CONSULTATION: Infectious disease. REASON FOR CONSULTATION: Antibiotic management. HISTORY OF PRESENT ILLNESS: Elle Grubbs is a 43-year-old female who comes in on 09/14 for a staged procedure with L3 to S1 ALIF on 09/14/2018 and posterior fixation on 09/15/2018. The patient was operated on by Dr. Zamorano. The patient is a 43-year-old female with a number of problems includin. Hypercholesterolemia. 2. Migraines. 3. Fibromyalgia. 4. Chronic back pain with a history of lumbar spine surgery. She was evaluated by Dr. Zamorano, in neurosurgery consultation for severe low back pain which got extre dimitri worse over the last 4 days prior to admission with radiation to bilateral lower extremities. Korey bennett presented to the emergency room with complaints of intractable low back pain requiring IV pain medi cation. She was evaluated by Dr. Zamorano. She underwent anterior lumbar interbody fusion from L3 to S 1. This was on 09/14/2018 and then she had the posterior completion of lumbar surgery on 09/15/2018. She was placed in the ICU. She has a mechanical low back pain and lower extremity radiculopathy. Continue IV fluids, postop antibiotics. On 09/16/2018 today, white count is 18.1, H and H of 9.3 and 28.9. BUN and creatinine is 7/0.55. White count is 18.1 with 78% neutrophils. PAST MEDICAL HISTORY: Operations as outlined, previous back surgery many years ago. SOCIAL HISTORY: Noncontributory. SOCIAL HISTORY: She does not smoke, drink or abuse drugs. ALLERGIES: NONE TO PENICILLIN, SULFA OR FOODS. MEDICATIONS: Per chart. REVIEW OF SYSTEMS: As per HPI. PHYSICAL EXAMINATION: GENERAL: The patient is alert, responsive, in no acute distress. VITAL SIGNS: Stable. She is afebrile. SKIN: Without generalized rash. HEENT: Within normal limits. NECK: Supple. LYMPH NODES: None palpable. CHEST: Decreased breath sounds at the bases. HEART: Without murmur or gallop. ABDOMEN: The patient is status post surgery. She has a dressing which has some drainage on it. Pos teriorly, she has a BERYL drain which is draining serosanguineous material. EXTREMITIES: Without cyanosis, clubbing or edema. RECTAL AND GENITAL: Deferred. Lozoya catheter in place. NEUROLOGIC: No focal neurological abnormalities. HOSPITAL COURSE: The patient's white count is elevated. A CT scan of the lumbar spine was done with fluoroscopy during diskectomy and fusion dated 09/14/2018 to 09/15/2018. She has a suspected develo ping left pelvic sidewall abscess within the region of inflammation at the level of the pelvic side w all. Followup CT exam of the pelvis without IV contrast would be of further use. The patient has wh ite count as noted to have 18.1. Urine culture is negative. The patient is currently on no antibiot ic therapy. We should get 2 sets of blood cultures 20 minutes apart if they were not done and discus s with Dr. Zamorano whether there is indication for invasive radiology to intervene know whether Dr. Chuy vallejo himself wants to intervene with regards to suspected developing left pelvic side wall abscess with in the region of inflammation at the left pelvic side wall. We will decide on whether to start her o n antibiotic therapy at this time after discussion with Dr. Zamorano and Dr. Mortensen. Dictated By: BREE PARADA MD, JD/ISRAEL Conf#: [id number] DID#: [id number]
--- NOTE | 2018-09-16 16:59 | CONS ---
DATE OF ADMISSION: 09/14/2018 DATE OF CONSULTATION: 09/16/2018 ADDENDUM: I discussed the case with Dr. Zamorano. He had discussed it with the radiologist and they vini th agreed that it is very unlikely after 1 day that Ms. Grubbs would be developing a small abscess. What we are seeing is probably Gelfoam that was stuck into the area. Therefore, I will not add any antibiotic therapy. I will get 2 sets of blood cultures because her white count is up to 18.1, which may be just reactive from stress. I will dictate my findings to Dr. Zamorano and to Dr. Rossi. Dictated By: BREE PARADA MD, JD/NTS Conf#: [id number] DID#: [id number] CC: VIVEK ROSSI MD;*EndCC*
[2018-09-16] MEDS: AL HYDROX/MG HYDROX/SIMETH 30 ML CUP PO PRN (22:47)
[2018-09-17] VITALS (10 sets, daily range): BP systolic 123–138; BP diastolic 71–85; PULSE 98–124; RESP 16–18
[2018-09-17] MEDS: HYDROmorphONE 0.2 MG/ML PCA IV SCH ×4 (00:04→22:37)
--- NOTE | 2018-09-17 04:10 | PN ---
Date/Time of Note Date/Time of Note DATE: 09/17/18 TIME: 04:10 Assessment/Plan VTE Prophylaxis Risk score (from Ns)>0 risk: 10 SCD applied (from Ns): Yes Lines/Catheters IV Catheter Type (from Nrs): Peripheral IV Urinary Cath still in place: Yes Reason Cath still needed: urinary retention Assessment/Plan Result Diagram: 09/16/18 0440 09/16/18 0440 Results 24hrs Laboratory Tests Test 09/16/18 04:40 09/16/18 10:37 White Blood Count 18.1 #H Red Blood Count 3.15 #L Hemoglobin 9.3 L Hematocrit 28.9 L Mean Corpuscular Volume 91.7 Mean Corpuscular Hemoglobin 29.5 Mean Corpuscular Hemoglobin Concent 32.2 Red Cell Distribution Width 12.6 Platelet Count 214 # Mean Platelet Volume 10.7 H Immature Granulocytes % 0.400 Neutrophils % 78.3 H Lymphocytes % 12.7 L Monocytes % 8.4 Eosinophils % 0.0 Basophils % 0.2 Nucleated Red Blood Cells % 0.0 Immature Granulocytes # 0.080 H Neutrophils # 14.2 H Lymphocytes # 2.3 Monocytes # 1.5 H Eosinophils # 0.0 Basophils # 0.0 Nucleated Red Blood Cells # 0.0 Sodium Level 139 Potassium Level 3.7 Chloride Level 104 Carbon Dioxide Level 31 Anion Gap 4 L Blood Urea Nitrogen 7 Creatinine 0.55 Est Glomerular Filtrat Rate mL/min > 60 Glucose Level 108 Calcium Level 8.1 L Lactic Acid Level 1.5 Exam/Review of Systems Exam Vitals Vital Signs Date Temp Pulse Resp B/P (MAP) Pulse Ox O2 O2 Flow FiO2 Time Delivery Rate 09/17/18 2.0 00:12 09/17/18 18 00:05 09/17/18 109 00:00 09/16/18 98.8 118/71 95 23:32 (87) 09/16/18 Nasal 20:57 Cannula Intake and Output 09/16/18 09/16/18 09/17/18 1515:00 23:00 07:00 IntakeIntake Total 1670 ml 450 ml OutputOutput Total 1175 ml 335 ml BalanceBalance 495 ml 115 ml Results Results 24hrs Laboratory Tests Test 09/16/18 04:40 09/16/18 10:37 White Blood Count 18.1 #H Red Blood Count 3.15 #L Hemoglobin 9.3 L Hematocrit 28.9 L Mean Corpuscular Volume 91.7 Mean Corpuscular Hemoglobin 29.5 Mean Corpuscular Hemoglobin Concent 32.2 Red Cell Distribution Width 12.6 Platelet Count 214 # Mean Platelet Volume 10.7 H Immature Granulocytes % 0.400 Neutrophils % 78.3 H Lymphocytes % 12.7 L Monocytes % 8.4 Eosinophils % 0.0 Basophils % 0.2 Nucleated Red Blood Cells % 0.0 Immature Granulocytes # 0.080 H Neutrophils # 14.2 H Lymphocytes # 2.3 Monocytes # 1.5 H Eosinophils # 0.0 Basophils # 0.0 Nucleated Red Blood Cells # 0.0 Sodium Level 139 Potassium Level 3.7 Chloride Level 104 Carbon Dioxide Level 31 Anion Gap 4 L Blood Urea Nitrogen 7 Creatinine 0.55 Est Glomerular Filtrat Rate mL/min > 60 Glucose Level 108 Calcium Level 8.1 L Lactic Acid Level 1.5 Medications Medication Current Medications Acetaminophen/ Hydrocodone Bitart ([place] (5/325)) 1 tab Q4H PRN PO .PAIN 1-5; Start 09/14/18 at 12:00 Al Hydrox/Mg Hydrox/Simethicone (Mag-Al Plus) 15 ml Q4H PRN PO .CONSTIPATION Last administered on 09/16/18 22:47; Admin Dose 15 ML; Start 09/14/18 at 12:00 Docusate Sodium (Colace) 100 mg BID PO Last administered on 09/16/18 22:47; Admin Dose 100 MG; Start 09/14/18 at 13:00 IV Flush (NS 3 ml) 3 ml PER PROTOCOL IV ; Start 09/14/18 at 12:00 Naloxone HCl (Narcan) 0.2 mg Q2M PRN IV RR 8 BREATHS/MIN OR LESS; Start 09/14/18 at 12:00 Lactated Ringer's 1,000 ml @ 150 mls/hr Q6H40M IV Last administered on 09/04 22:47; Admin Dose 150 MLS/HR; Start 09/15/18 at 13:00 Hydromorphone HCl (Dilaudid SUPERINTENDENT POLICE) Q4PCA IV Last administered on 09/17/18at 00:04; Admin Dose 6 MG; Start 09/15/18 at 15:00 Diphenhydramine HCl (Benadryl) 50 mg Q6H PRN PO ITCHING Last administered on 09/17/18at 03:47; Admin Dose 50 MG; Start 09/16/18 at 15:00 MARIANGEL KATZ Sep 17, 2018 04:10
[2018-09-17] MEDS: LACTATED RINGER'S 1,000 ML IV SCH ×4 (05:00→22:38)
[2018-09-17] MEDS: DOCUSATE SODIUM 100 MG CAP PO SCH ×2 (08:24→21:01)
[2018-09-17] MEDS ORDERED: PANTOPRAZOLE (EC) 40 MG TAB PO ONE (13:00)
[2018-09-17] MEDS ORDERED: AL HYDROX/MG HYDROX/SIMETH 30 ML CUP PO PRN (14:30)
--- NOTE | 2018-09-17 14:58 | CONS ---
Assessment/Plan Assessment/Plan Hospital Course (Demo Recall) Patient is alert looks comfortable family at bedside, no fevers overnight. No labs today. Antimicrobials: None Indwelling: Peripheral IV, BERYL Physical examination: Obese well-developed middle-aged woman who is alert in no distress. Head atraumatic normocephalic sclera nonicteric neck is supple chest rise symmetrical breath sounds clear heart S1-S2 abdomen soft bowel sounds present extremities without cyanosis Assessment: 1. Leukocytosis, likely reactive 2. Status poststaged procedure with L3 to S1 ALIF on 09/14/2018 and posterior fixation on 09/15/2018 3. Morbid obesity Plan: Patient is stable, will keep her off antibiotics, await for cultures, repeat labs in a.m. Consultation Date/Type/Reason Admit Date/Time Sep 14, 2018 at 17:24 Initial Consult Date Type of Consult id Date/Time of Note DATE: 09/17/18 TIME: 14:58 Exam/Review of Systems Exam Vitals Vital Signs Date Temp Pulse Resp B/P (MAP) Pulse Ox O2 O2 Flow FiO2 Time Delivery Rate 09/17/18 101 12:10 09/17/18 17 12:00 09/17/18 98.7 136/78 98 Nasal 11:33 (97) Cannula 09/17/18 2.0 09:00 Intake and Output 09/16/18 09/16/18 09/17/18 1515:00 23:00 07:00 IntakeIntake Total 1670 ml 450 ml 1550 ml OutputOutput Total 1175 ml 335 ml 1400 ml BalanceBalance 495 ml 115 ml 150 ml Results Result Diagram: 09/16/1843909/16/18439 Medications Medication Current Medications Acetaminophen/ Hydrocodone Bitart ([place] (5/325)) 1 tab Q4H PRN PO .PAIN 1-5; Start 09/14/18 at 12:00 Al Hydrox/Mg Hydrox/Simethicone (Mag-Al Plus) 15 ml Q4H PRN PO .CONSTIPATION Last administered on 09/16/18at 22:47; Admin Dose 15 ML; Start 09/14/18 at 12:00 Docusate Sodium (Colace) 100 mg BID PO Last administered on 09/17/18at 08:24; Admin Dose 100 MG; Start 09/14/18 at 13:00 IV Flush (NS 3 ml) 3 ml PER PROTOCOL IV ; Start 09/14/18 at 12:00 Naloxone HCl (Narcan) 0.2 mg Q2M PRN IV RR 8 BREATHS/MIN OR LESS; Start 09/14/18 at 12:00 Lactated Ringer's 1,000 ml @ 150 mls/hr Q6H40M IV Last administered on 09/17/18at 10:45; Admin Dose 150 MLS/HR; Start 09/15/18 at 13:00 Hydromorphone HCl (Dilaudid APPLE PACKING HEADER) Q4PCA IV Last administered on 09/17/18at 07:50; Admin Dose 0.2 MG; Start 09/15/18 at 15:00 Diphenhydramine HCl (Benadryl) 50 mg Q6H PRN PO ITCHING Last administered on 09/17/18at 03:47; Admin Dose 50 MG; Start 09/16/18 at 15:00 Al Hydrox/Mg Hydrox/Simethicone (Mag-Al Plus) 30 ml Q6H PRN PO GASTROINTESTINAL UPSET; Start 09/17/18 at 14:30 TERRY SIDDIQI NP Sep 17, 2018 14:58
--- NOTE | 2018-09-17 15:03 | PN ---
Date/Time of Note Date/Time of Note DATE: 09/17/18 TIME: 15:00 Assessment/Plan VTE Prophylaxis Risk score (from Nsg)>0 risk: 10 SCD applied (from Nsg): Yes SCD contraindicated: low risk/ambulating Pharmacological prophylaxis: NA/contraindicated Pharm contraindication: low risk/ambulating Lines/Catheters IV Catheter Type (from Nrsg): Saline Lock [place] line still needed: No Urinary Cath still in place: No Assessment/Plan Assessment/Plan Neurosurgery s/p L3-S1 ALIF with ISF Placement post op images stable Plan cont supportive care dc rosa drain dc planning okay from NS point of view once pain controlled follow up in 2 weeks LSO brace x 6 weeks when oob Result Diagram: 09/16/18 0440 09/16/18 0440 Subjective 24 Hr Interval Summary Free Text/Dictation Neurosurgery S: S/P L3-S1 ALIF with Posterior fixation using ISF Device Exam/Review of Systems Exam Vitals Vital Signs Date Temp Pulse Resp B/P (MAP) Pulse Ox O2 O2 Flow FiO2 Time Delivery Rate 09/17/18 101 12:10 09/17/18 17 12:00 09/17/18 98.7 136/78 98 Nasal 11:33 (97) Cannula 09/17/18 2.0 09:00 Intake and Output 09/16/18 09/16/18 09/17/18 1515:00 23:00 07:00 IntakeIntake Total 1670 ml 450 ml 1550 ml OutputOutput Total 1175 ml 335 ml 1400 ml BalanceBalance 495 ml 115 ml 150 ml Neurological: other (MS: AAOX4 CN: PERRL M: FC x 4 , no focal def. S: Den ies LE Numbness /tingling ) Medications Medication Current Medications Acetaminophen/ Hydrocodone Bitart ([place] (5/325)) 1 tab Q4H PRN PO .PAIN 1-5; Start 09/14/18 at 12:00 Al Hydrox/Mg Hydrox/Simethicone (Mag-Al Plus) 15 ml Q4H PRN PO .CONSTIPATION Last administered on 09/16/18at 22:47; Admin Dose 15 ML; Start 09/14/18 at 12:00 Docusate Sodium (Colace) 100 mg BID PO Last administered on 09/17/18at 08:24; Admin Dose 100 MG; Start 09/14/18 at 13:00 IV Flush (NS 3 ml) 3 ml PER PROTOCOL IV ; Start 09/14/18 at 12:00 Naloxone HCl (Narcan) 0.2 mg Q2M PRN IV RR 8 BREATHS/MIN OR LESS; Start 09/14/18 at 12:00 Lactated Ringer's 1,000 ml @ 150 mls/hr Q6H40M IV Last administered on 09/17/18at 10:45; Admin Dose 150 MLS/HR; Start 09/15/18 at 13:00 Hydromorphone HCl (Dilaudid CHIROPRACTIC NEUROLOGIST) Q4PCA IV Last administered on 09/17/18at 07:50; Admin Dose 0.2 MG; Start 09/15/18 at 15:00 Diphenhydramine HCl (Benadryl) 50 mg Q6H PRN PO ITCHING Last administered on 09/17/18at 03:47; Admin Dose 50 MG; Start 09/16/18 at 15:00 Al Hydrox/Mg Hydrox/Simethicone (Mag-Al Plus) 30 ml Q6H PRN PO GASTROINTESTINAL UPSET; Start 09/17/18 at 14:30 KYLEE FUCHS NP Sep 17, 2018 15:03
[2018-09-18] VITALS (11 sets, daily range): BP systolic 110–136; BP diastolic 58–86; PULSE 79–130; RESP 17–20
[2018-09-18] MEDS: HYDROmorphONE 0.2 MG/ML PCA IV SCH ×3 (05:19→21:19)
[2018-09-18] MEDS: LACTATED RINGER'S 1,000 ML IV SCH (05:23)
[2018-09-18] MEDS: DOCUSATE SODIUM 100 MG CAP PO SCH ×2 (10:29→21:00)
--- NOTE | 2018-09-18 10:45 | PN ---
Date/Time of Note Date/Time of Note DATE: 09/18/18 TIME: 10:44 Assessment/Plan VTE Prophylaxis Risk score (from Nsg)>0 risk: 11 SCD applied (from Nsg): Yes Pharmacological prophylaxis: LMWH Lines/Catheters IV Catheter Type (from Nrsg): [place] Lock Urinary Cath still in place: No Assessment/Plan Hospital Course s/p L3-S1 ALIF with ISF Placement - continue post operative care - on pain medication Result Diagram: 09/18/18 0546 09/16/18 0440 Results 24hrs Laboratory Tests Test 09/18/18 05:46 White Blood Count 13.7 #H Red Blood Count 3.21 L Hemoglobin 9.6 L Hematocrit 29.4 L Mean Corpuscular Volume 91.6 Mean Corpuscular Hemoglobin 29.9 Mean Corpuscular Hemoglobin Concent 32.7 Red Cell Distribution Width 12.3 Platelet Count 223 Mean Platelet Volume 10.2 Immature Granulocytes % 0.600 H Neutrophils % 69.0 Lymphocytes % 19.0 Monocytes % 7.9 Eosinophils % 3.1 Basophils % 0.4 Nucleated Red Blood Cells % 0.0 Immature Granulocytes # 0.080 H Neutrophils # 9.5 H Lymphocytes # 2.6 Monocytes # 1.1 H Eosinophils # 0.4 Basophils # 0.1 Nucleated Red Blood Cells # 0.0 Subjective 24 Hr Interval Summary Free Text/Dictation Patient still having significant back pain Exam/Review of Systems Exam Vitals Vital Signs Date Temp Pulse Resp B/P (MAP) Pulse Ox O2 O2 Flow FiO2 Time Delivery Rate 09/18/18 84 08:19 09/18/18 Nasal 3.0 08:00 Cannula 09/18/18 18 08:00 09/18/18 97.5 113/86 95 07:23 (95) Intake and Output 09/17/18 09/17/18 09/18/18 1515:00 23:00 07:00 IntakeIntake Total 800 ml OutputOutput Total 1000 ml BalanceBalance -200 ml Constitutional: well developed Head: normocephalic, atraumatic Neck: supple Respiratory: diminished breath sounds Cardiovascular: regular rate and rhythm Gastrointestinal: soft, non-tender Extremities: normal pulses Results Results 24hrs Laboratory Tests Test 09/18/18 05:46 White Blood Count 13.7 #H Red Blood Count 3.21 L Hemoglobin 9.6 L Hematocrit 29.4 L Mean Corpuscular Volume 91.6 Mean Corpuscular Hemoglobin 29.9 Mean Corpuscular Hemoglobin Concent 32.7 Red Cell Distribution Width 12.3 Platelet Count 223 Mean Platelet Volume 10.2 Immature Granulocytes % 0.600 H Neutrophils % 69.0 Lymphocytes % 19.0 Monocytes % 7.9 Eosinophils % 3.1 Basophils % 0.4 Nucleated Red Blood Cells % 0.0 Immature Granulocytes # 0.080 H Neutrophils # 9.5 H Lymphocytes # 2.6 Monocytes # 1.1 H Eosinophils # 0.4 Basophils # 0.1 Nucleated Red Blood Cells # 0.0 Medications Medication Current Medications Acetaminophen/ Hydrocodone Bitart ([place] (5/325)) 1 tab Q4H PRN PO .PAIN 1-5; Start 09/14/18 at 12:00 Al Hydrox/Mg Hydrox/Simethicone (Mag-Al Plus) 15 ml Q4H PRN PO .CONSTIPATION Last administered on 09/16/18at 22:47; Admin Dose 15 ML; Start 09/14/18 at 12:00 Docusate Sodium (Colace) 100 mg BID PO Last administered on 09/18/18at 10:29; Admin Dose 100 MG; Start 09/14/18 at 13:00 IV Flush (NS 3 ml) 3 ml PER PROTOCOL IV ; Start 09/14/18 at 12:00 Naloxone HCl (Narcan) 0.2 mg Q2M PRN IV RR 8 BREATHS/MIN OR LESS; Start 09/14/18 at 12:00 Lactated Ringer's 1,000 ml @ 150 mls/hr Q6H40M IV Last administered on 09/18/18at 05:23; Admin Dose 150 MLS/HR; Start 09/15/18 at 13:00 Hydromorphone HCl (Dilaudid SLED MAKER) Q4PCA IV Last administered on 09/18/18 05:19; Admin Dose 0.2 MG; Start 09/15/18 at 15:00 Diphenhydramine HCl (Benadryl) 50 mg Q6H PRN PO ITCHING Last administered on 09/17/18at 03:47; Admin Dose 50 MG; Start 09/16/18 at 15:00 Al Hydrox/Mg Hydrox/Simethicone (Mag-Al Plus) 30 ml Q6H PRN PO GASTROINTESTINAL UPSET; Start 09/17/18 at 14:30 ANJELICA FLORIAN Sep 18, 2018 10:45
--- NOTE | 2018-09-18 16:13 | CONS ---
Consultation Date/Type/Reason Admit Date/Time Sep 14, 2018 at 17:24 Initial Consult Date Type of Consult SUBJECTIVE: Patient is awake, alert. No fevers. VS: stable T: 98.9 LABS: Reviewed. WBC- 13.7 Improving Antimicrobials: None Indwelling: Peripheral IV, BERYL Physical examination: GEN: Obese well-developed middle-aged woman, who is alert in no distress. HENT: Head atraumatic normocephalic; sclera nonicteric; neck is supple PULM: chest rise symmetrical breath sounds clear Heart: S1-S2 Abdomen: soft, bowel sounds present Extremities without cyanosis Assessment: 1. Leukocytosis, likely reactive 2. Status poststaged procedure with L3 to S1 ALIF on 09/14/2018 and posterior fixation on 09/15/2018 3. Morbid obesity Plan: Patient is stable. Will monitor her off of antibiotics. WBC improving. Await for cultures. Surgery following Date/Time of Note DATE: 09/18/18 TIME: 16:10 Exam/Review of Systems Exam Vitals Vital Signs Date Temp Pulse Resp B/P (MAP) Pulse Ox O2 O2 Flow FiO2 Time Delivery Rate 09/18/18 98.9 114 18 136/80 92 Nasal 15:25 (98) Cannula 09/18/18 3.0 14:17 Intake and Output 09/17/18 09/17/18 09/18/18 1515:00 23:00 07:00 IntakeIntake Total 800 ml OutputOutput Total 1000 ml BalanceBalance -200 ml Results Result Diagram: 09/18/18 0546 09/16/18 0440 Results 24hrs Laboratory Tests Test 09/18/18 05:46 White Blood Count 13.7 #H Red Blood Count 3.21 L Hemoglobin 9.6 L Hematocrit 29.4 L Mean Corpuscular Volume 91.6 Mean Corpuscular Hemoglobin 29.9 Mean Corpuscular Hemoglobin Concent 32.7 Red Cell Distribution Width 12.3 Platelet Count 223 Mean Platelet Volume 10.2 Immature Granulocytes % 0.600 H Neutrophils % 69.0 Lymphocytes % 19.0 Monocytes % 7.9 Eosinophils % 3.1 Basophils % 0.4 Nucleated Red Blood Cells % 0.0 Immature Granulocytes # 0.080 H Neutrophils # 9.5 H Lymphocytes # 2.6 Monocytes # 1.1 H Eosinophils # 0.4 Basophils # 0.1 Nucleated Red Blood Cells # 0.0 Medications Medication Current Medications Acetaminophen/ Hydrocodone Bitart ([place] (5/325)) 1 tab Q4H PRN PO .PAIN 1-5; Start 09/14/18 at 12:00 Al Hydrox/Mg Hydrox/Simethicone (Mag-Al Plus) 15 ml Q4H PRN PO .CONSTIPATION Last administered on 09/16/18at 22:47; Admin Dose 15 ML; Start 09/14/18 at 12:00 Docusate Sodium (Colace) 100 mg BID PO Last administered on 09/18/18at 10:29; Admin Dose 100 MG; Start 09/14/18 at 13:00 IV Flush (NS 3 ml) 3 ml PER PROTOCOL IV ; Start 09/14/18 at 12:00 Naloxone HCl (Narcan) 0.2 mg Q2M PRN IV RR 8 BREATHS/MIN OR LESS; Start 09/14/18 at 12:00 Hydromorphone HCl (Dilaudid SENIOR C WEB DEVELOPER) Q4PCA IV Last administered on 09/18/18at 05:19; Admin Dose 0.2 MG; Start 09/15/18 at 15:00 Diphenhydramine HCl (Benadryl) 50 mg Q6H PRN PO ITCHING Last administered on 09/17/18at 03:47; Admin Dose 50 MG; Start 09/16/18 at 15:00 Al Hydrox/Mg Hydrox/Simethicone (Mag-Al Plus) 30 ml Q6H PRN PO GASTROINTESTINAL UPSET; Start 09/17/18 at 14:30 NICOL LOUIS Sep 18, 2018 16:13
[2018-09-18] MEDS: AL HYDROX/MG HYDROX/SIMETH 30 ML CUP PO PRN (21:24)
[2018-09-19] VITALS (9 sets, daily range): BP systolic 124–137; BP diastolic 66–87; PULSE 88–115; RESP 18–20
[2018-09-19] MEDS: HYDROmorphONE 0.2 MG/ML PCA IV SCH ×3 (04:28→22:41)
[2018-09-19] MEDS: DOCUSATE SODIUM 100 MG CAP PO SCH ×2 (09:02→21:53)
--- NOTE | 2018-09-19 10:54 | PN ---
Date/Time of Note Date/Time of Note DATE: 09/19/18 TIME: 10:54 Assessment/Plan VTE Prophylaxis Risk score (from Nsg)>0 risk: 10 SCD applied (from Nsg): Yes Pharmacological prophylaxis: LMWH Lines/Catheters IV Catheter Type (from Nrsg): Peripheral IV Urinary Cath still in place: No Assessment/Plan Hospital Course s/p L3-S1 ALIF with ISF Placement - continue post operative care - on pain medication Result Diagram: 09/18/18 0546 09/16/18 0440 Subjective 24 Hr Interval Summary Free Text/Dictation Patient still have fair amount of back pain, still on COFFEE ATTENDANT pump Exam/Review of Systems Exam Vitals Vital Signs Date Temp Pulse Resp B/P (MAP) Pulse Ox O2 O2 Flow FiO2 Time Delivery Rate 09/19/18 111 08:00 09/19/18 98.6 18 130/68 91 07:38 (88) 09/19/18 3.0 06:02 09/18/18 Nasal 15:25 Cannula Intake and Output 09/18/18 09/18/18 09/19/18 1515:00 23:00 07:00 IntakeIntake Total 800 ml 900 ml BalanceBalance 800 ml 900 ml Constitutional: well developed Head: normocephalic, atraumatic Neck: supple Respiratory: clear to auscultation Cardiovascular: regular rate and rhythm Gastrointestinal: soft, non-tender Extremities: normal pulses Medications Medication Current Medications Acetaminophen/ Hydrocodone Bitart ([place] (5/325)) 1 tab Q4H PRN PO .PAIN 1-5; Start 09/14/18 at 12:00 Al Hydrox/Mg Hydrox/Simethicone (Mag-Al Plus) 15 ml Q4H PRN PO .CONSTIPATION Last administered on 09/18/18at 21:24; Admin Dose 15 ML; Start 09/14/18 at 12:00 Docusate Sodium (Colace) 100 mg BID PO Last administered on 09/19/18at 09:02; Admin Dose 100 MG; Start 09/14/18 at 13:00 IV Flush (NS 3 ml) 3 ml PER PROTOCOL IV ; Start 09/14/18 at 12:00 Naloxone HCl (Narcan) 0.2 mg Q2M PRN IV RR 8 BREATHS/MIN OR LESS; Start 09/14 at 12:00 Hydromorphone HCl (Dilaudid COFFEE ATTENDANT) Q4PCA IV Last administered on 09/19/18at 04:28; Admin Dose 0.2 MG; Start 09/15/18 at 15:00 Diphenhydramine HCl (Benadryl) 50 mg Q6H PRN PO ITCHING Last administered on 09/17/18at 03:47; Admin Dose 50 MG; Start 09/16/18 at 15:00 Al Hydrox/Mg Hydrox/Simethicone (Mag-Al Plus) 30 ml Q6H PRN PO GASTROINTESTINAL UPSET; Start 09/17/18 at 14:30 ANJELICA FLORIAN Sep 19, 2018 10:54
--- NOTE | 2018-09-19 13:47 | CONS ---
Consultation Date/Type/Reason Admit Date/Time Sep 14, 2018 at 17:24 Initial Consult Date Type of Consult SUBJECTIVE: No acute events over night. Pt looks comfortable. No fevers. VS: stable T: 98.8 LABS: Reviewed. Antimicrobials: None Indwelling: Peripheral IV, BERYL Physical examination: GEN: Obese well-developed middle-aged woman, who is alert in no distress. HENT: Head atraumatic normocephalic; sclera nonicteric; neck is supple PULM: chest rise symmetrical breath sounds clear Heart: S1-S2 Abdomen: soft, bowel sounds present Extremities without cyanosis Assessment: 1. Leukocytosis, likely reactive 2. Status poststaged procedure with L3 to S1 ALIF on 09/14/2018 and posterior fixation on 09/15/2018 3. Morbid obesity Plan: Patient is stable. Will monitor her off of antibiotics. WBC improving. Await for cultures. Surgery following Date/Time of Note DATE: 09/19/18 TIME: 13:46 Exam/Review of Systems Exam Vitals Vital Signs Date Temp Pulse Resp B/P (MAP) Pulse Ox O2 O2 Flow FiO2 Time Delivery Rate 09/19/18 105 12:00 09/19/18 98.8 19 124/76 92 11:38 (92) 09/19/18 3.0 06:02 09/18/18 Nasal 15:25 Cannula Intake and Output 09/18/18 09/18/18 09/19/18 1515:00 23:00 07:00 IntakeIntake Total 800 ml 900 ml BalanceBalance 800 ml 900 ml Results Result Diagram: 09/18/18 0546 09/16/18 0440 Medications Medication Current Medications Acetaminophen/ Hydrocodone Bitart ([place] (5/325)) 1 tab Q4H PRN PO .PAIN 1-5; Start 09/14/18 at 12:00 Al Hydrox/Mg Hydrox/Simethicone (Mag-Al Plus) 15 ml Q4H PRN PO .CONSTIPATION Last administered on 09/18/18at 21:24; Admin Dose 15 ML; Start 09/14/18 at 12:00 Docusate Sodium (Colace) 100 mg BID PO Last administered on 09/19/18at 09:02; Admin Dose 100 MG; Start 09/14/18 at 13:00 IV Flush (NS 3 ml) 3 ml PER PROTOCOL IV ; Start 09/14/18 at 12:00 Naloxone HCl (Narcan) 0.2 mg Q2M PRN IV RR 8 BREATHS/MIN OR LESS; Start 09/14/18 at 12:00 Hydromorphone HCl (Dilaudid BILLING MACHINE OPERATOR) Q4PCA IV Last administered on 09/19/18at 13:31; Admin Dose 6 MG; Start 09/15/18 at 15:00 Diphenhydramine HCl (Benadryl) 50 mg Q6H PRN PO ITCHING Last administered on 09/17/18at 03:47; Admin Dose 50 MG; Start 09/16/18 at 15:00 Al Hydrox/Mg Hydrox/Simethicone (Mag-Al Plus) 30 ml Q6H PRN PO GASTROINTESTINAL UPSET; Start 09/17/18 at 14:30 NICOL LOUIS Sep 19, 2018 13:47
[2018-09-20] VITALS (11 sets, daily range): BP systolic 130–149; BP diastolic 71–94; PULSE 75–126; RESP 18–20
[2018-09-20] MEDS: DOCUSATE SODIUM 100 MG CAP PO SCH ×2 (08:21→20:27)
--- NOTE | 2018-09-20 13:14 | PN ---
Date/Time of Note Date/Time of Note DATE: 09/20/18 TIME: 13:09 Assessment/Plan VTE Prophylaxis Risk score (from Ns)>0 risk: 8 SCD applied (from Ns): Yes Pharmacological prophylaxis: NA/contraindicated Pharm contraindication: surgical contra Lines/Catheters IV Catheter Type (from Nrsg): Peripheral IV Urinary Cath still in place: No Assessment/Plan Hospital Course Patient is lethargic however easily arousable, continues on RURAL HEALTH CONSULTANT Dilaudid, complains of constipation. Will DC RURAL HEALTH CONSULTANT Dilaudid, continue [place] and Dilaudid as needed, continue bowel regimen. Potassium is 3.0, will replace. Assessment/Plan -Mechanical LBP and LE radiculopathy. S/p ALIF L3-S1 on 09/14/2018 and s/p Bilateral L3-S1 ISF Placement on 09/15/[address] Zamorano. Continue [place] and Dilaudid for pain. Continue PT. Further commendations based on clinical course. Plan of care discussed with Dr. Mortensen. Result Diagram: 09/20/18 0942 09/20/18 0942 Results 24hrs Laboratory Tests Test 09/20/18 09:42 White Blood Count 12.0 H Red Blood Count 3.25 L Hemoglobin 9.6 L Hematocrit 29.2 L Mean Corpuscular Volume 89.8 Mean Corpuscular Hemoglobin 29.5 Mean Corpuscular Hemoglobin Concent 32.9 Red Cell Distribution Width 12.4 Platelet Count 287 # Mean Platelet Volume 9.6 Immature Granulocytes % 1.200 H Neutrophils % 67.2 Lymphocytes % 17.5 Monocytes % 9.0 Eosinophils % 4.4 Basophils % 0.7 Nucleated Red Blood Cells % 0.3 H Immature Granulocytes # 0.140 H Neutrophils # 8.1 H Lymphocytes # 2.1 Monocytes # 1.1 H Eosinophils # 0.5 Basophils # 0.1 Nucleated Red Blood Cells # 0.0 Sodium Level 137 Potassium Level 3.0 L Chloride Level 98 Carbon Dioxide Level 31 Anion Gap 8 Blood Urea Nitrogen 9 Creatinine 0.53 Est Glomerular Filtrat Rate mL/min > 60 Glucose Level 115 Calcium Level 8.3 L Exam/Review of Systems Exam Vitals Vital Signs Date Temp Pulse Resp B/P (MAP) Pulse Ox O2 O2 Flow FiO2 Time Delivery Rate 09/20/18 19 12:13 09/20/18 98.3 97 132/71 97 11:59 (91) 09/20/18 3.0 01:39 09/18/18 Nasal 15:25 Cannula Intake and Output 09/19/18 09/19/18 09/20/18 1515:00 23:00 07:00 IntakeIntake Total 500 ml 600 ml BalanceBalance 500 ml 600 ml Exam Constitutional: alert, oriented Respiratory: clear to auscultation Cardiovascular: regular rate and rhythm Gastrointestinal: soft, non-tender, other (Status post surgery) Genitourinary - Female: other ([place] catheter) Musculoskeletal: nl extremities to inspection, (Status post low back surgery) Extremities: normal pulses Neurological: nl mental status Results Results 24hrs Laboratory Tests Test 09/20/18 09:42 White Blood Count 12.0 H Red Blood Count 3.25 L Hemoglobin 9.6 L Hematocrit 29.2 L Mean Corpuscular Volume 89.8 Mean Corpuscular Hemoglobin 29.5 Mean Corpuscular Hemoglobin Concent 32.9 Red Cell Distribution Width 12.4 Platelet Count 287 # Mean Platelet Volume 9.6 Immature Granulocytes % 1.200 H Neutrophils % 67.2 Lymphocytes % 17.5 Monocytes % 9.0 Eosinophils % 4.4 Basophils % 0.7 Nucleated Red Blood Cells % 0.3 H Immature Granulocytes # 0.140 H Neutrophils # 8.1 H Lymphocytes # 2.1 Monocytes # 1.1 H Eosinophils # 0.5 Basophils # 0.1 Nucleated Red Blood Cells # 0.0 Sodium Level 137 Potassium Level 3.0 L Chloride Level 98 Carbon Dioxide Level 31 Anion Gap 8 Blood Urea Nitrogen 9 Creatinine 0.53 Est Glomerular Filtrat Rate mL/min > 60 Glucose Level 115 Calcium Level 8.3 L Medications Medication Current Medications Acetaminophen/ Hydrocodone Bitart ([place] (5/325)) 1 tab Q4H PRN PO .PAIN 1-5; Start 09/14/18 at 12:00 Al Hydrox/Mg Hydrox/Simethicone (Mag-Al Plus) 15 ml Q4H PRN PO .CONSTIPATION Last administered on 09/18/18at 21:24; Admin Dose 15 ML; Start 09/14/18 at 12:00 Docusate Sodium (Colace) 100 mg BID PO Last administered on 09/20/18at 08:21; Admin Dose 100 MG; Start 09/14/18 at 13:00 IV Flush (NS 3 ml) 3 ml PER PROTOCOL IV ; Start 09/14/18 at 12:00 Naloxone HCl (Narcan) 0.2 mg Q2M PRN IV RR 8 BREATHS/MIN OR LESS; Start 09/14/18 at 12:00 Hydromorphone HCl (Dilaudid RURAL HEALTH CONSULTANT) Q4PCA IV Last administered on 09/19/18at 22:41; Admin Dose 6 MG; Start 09/15/18 at 15:00 Diphenhydramine HCl (Benadryl) 50 mg Q6H PRN PO ITCHING Last administered on 09/17/18at 03:47; Admin Dose 50 MG; Start 09/16/18 at 15:00 Al Hydrox/Mg Hydrox/Simethicone (Mag-Al Plus) 30 ml Q6H PRN PO GASTROINTESTINAL UPSET; Start 09/17/18 at 14:30 ERIKA SOLITARIO Sep 20, 2018 13:14
[2018-09-20] MEDS ORDERED: POTASSIUM CHLORIDE 20 MEQ POWDER FOR ORAL SOLN PO ONE (13:30)
[2018-09-20] MEDS: POLYETHYLENE GLYCOL 17 GM PACKET GTB SCH (14:26)
--- NOTE | 2018-09-20 15:58 | CONS ---
Assessment/Plan Assessment/Plan Hospital Course (Demo Recall) Patient is alert feels good, no fevers Antimicrobials: None Indwelling: Peripheral IV, BERYL Physical examination: Obese well-developed middle-aged woman who is alert in no distress. Head atraumatic normocephalic sclera nonicteric neck is supple chest rise symmetrical breath sounds clear heart S1-S2 abdomen soft bowel sounds present extremities without cyanosis Assessment: 1. Leukocytosis, likely reactive 2. Status poststaged procedure with L3 to S1 ALIF on 09/14/2018 and posterior fixation on 09/15/2018 3. Morbid obesity Plan: Remains stable, continue present care/PT Consultation Date/Type/Reason Admit Date/Time Sep 14, 2018 at 17:24 Initial Consult Date Type of Consult id Date/Time of Note DATE: 09/20/18 TIME: 15:58 Exam/Review of Systems Exam Vitals Vital Signs Date Temp Pulse Resp B/P (MAP) Pulse Ox O2 O2 Flow FiO2 Time Delivery Rate 09/20/18 98.4 99 18 149/80 90 15:16 (103) 09/20/18 3.0 01:39 09/18/18 Nasal 15:25 Cannula Intake and Output 09/19/18 09/19/18 09/20/18 1515:00 23:00 07:00 IntakeIntake Total 500 ml 600 ml BalanceBalance 500 ml 600 ml Results Result Diagram: 09/20/18 0942 09/20/18 0942 Results 24hrs Laboratory Tests Test 09/20/18 09:42 White Blood Count 12.0 H Red Blood Count 3.25 L Hemoglobin 9.6 L Hematocrit 29.2 L Mean Corpuscular Volume 89.8 Mean Corpuscular Hemoglobin 29.5 Mean Corpuscular Hemoglobin Concent 32.9 Red Cell Distribution Width 12.4 Platelet Count 287 # Mean Platelet Volume 9.6 Immature Granulocytes % 1.200 H Neutrophils % 67.2 Lymphocytes % 17.5 Monocytes % 9.0 Eosinophils % 4.4 Basophils % 0.7 Nucleated Red Blood Cells % 0.3 H Immature Granulocytes # 0.140 H Neutrophils # 8.1 H Lymphocytes # 2.1 Monocytes # 1.1 H Eosinophils # 0.5 Basophils # 0.1 Nucleated Red Blood Cells # 0.0 Sodium Level 137 Potassium Level 3.0 L Chloride Level 98 Carbon Dioxide Level 31 Anion Gap 8 Blood Urea Nitrogen 9 Creatinine 0.53 Est Glomerular Filtrat Rate mL/min > 60 Glucose Level 115 Calcium Level 8.3 L Medications Medication Current Medications Acetaminophen/ Hydrocodone Bitart ([place] (5/325)) 1 tab Q4H PRN PO .PAIN 1-5; Start 09/14/18 at 12:00 Al Hydrox/Mg Hydrox/Simethicone (Mag-Al Plus) 15 ml Q4H PRN PO .CONSTIPATION Last administered on 09/18/18at 21:24; Admin Dose 15 ML; Start 09/14/18 at 12:00 Docusate Sodium (Colace) 100 mg BID PO Last administered on 09/20/18at 08:21; Admin Dose 100 MG; Start 09/14/18 at 13:00 IV Flush (NS 3 ml) 3 ml PER PROTOCOL IV ; Start 09/14/18 at 12:00 Naloxone HCl (Narcan) 0.2 mg Q2M PRN IV RR 8 BREATHS/MIN OR LESS; Start 09/14/18 at 12:00 Diphenhydramine HCl (Benadryl) 50 mg Q6H PRN PO ITCHING Last administered on 09/17/18at 03:47; Admin Dose 50 MG; Start 09/16/18 at 15:00 Al Hydrox/Mg Hydrox/Simethicone (Mag-Al Plus) 30 ml Q6H PRN PO GASTROINTESTINAL UPSET; Start 09/17/18 at 14:30 Hydromorphone HCl (Dilaudid) 1 mg Q4H PRN IV SEVERE PAIN LEVEL 7-10; Start 09/20/18 at 13:30 Polyethylene Glycol (Miralax) 17 gm DAILY GTB Last administered on 09/20/18at 14:26; Admin Dose 17 GM; Start 09/20/18 at 13:30 TERRY SIDDIQI NP Sep 20, 2018 15:58
[2018-09-20] MEDS: HYDROmorphONE 1 MG/ML SYG IV PRN ×2 (16:21→20:52)
[2018-09-20] MEDS: HYDROCODONE/APAP (5/325) TAB PO PRN (20:53)
[2018-09-20] MEDS ORDERED: ZOLPIDEM 5 MG TAB PO PRN (23:00)
[2018-09-21] VITALS (7 sets, daily range): BP systolic 142–159; BP diastolic 80–84; PULSE 74–96; RESP 18–19
[2018-09-21] MEDS: HYDROCODONE/APAP (5/325) TAB PO PRN ×2 (04:02→09:18)
[2018-09-21] MEDS: DOCUSATE SODIUM 100 MG CAP PO SCH (09:13)
[2018-09-21] MEDS: POLYETHYLENE GLYCOL 17 GM PACKET GTB SCH (09:13)
[2018-09-21] MEDS ORDERED: POTASSIUM CHLORIDE (SR) 20 MEQ TAB PO STA (11:55)
[2018-09-21] MEDS ORDERED: HYDR-3601 PO (12:31)
[2018-09-21] MEDS ORDERED: SENN-36 PO (12:31)
--- NOTE | 2018-09-21 22:14 | DS ---
Date/Time of Note Date/Time of Note DATE: 09/21/18 TIME: 22:12 Discharge Summary Admission/Discharge Info Admit Date/Time Sep 14, 2018 at 17:24 Discharge Date/Time Sep 21, 2018 at 13:56 Patient Condition: Stable Hx of Present Illness Patient is 43-year-old female with history of hyper cholesterolemia, migraines, fibromyalgia and chronic back pain with history of lumbar spine surgery was evaluated by Dr. Zamorano in neurosurgery consultation for severe lower back pain which got extremely worse over the last 4 days with radiation to bilateral lower extremities. Patient presented to the emergency room with complaint of in tractable lower back pain requiring IV pain medication. Patient was evaluated by Dr. Zamorano and was taking 2 operating room and underwent anterior lumbar interbody fusion of L3-S1. She is seen in ICU. Patient is currently on Dilaudid OPTIMIZATION CONSULTANT for pain control. Patient is awake alert denies any chest pain denies shortness of breath. Hospital Course Pt d/cedhome with PT services and arrangements for FWW. -Mechanical LBP and LE radiculopathy. S/p ALIF L3-S1 on 09/14/2018 and s/p Bilateral L3-S1 ISF Placement on 09/15/[address] Zamorano. Continue [place] and Dilaudid for pain. Continue PT with LSO brace. Plan of care discussed with Dr. Mortensen. Home Meds Active Scripts Sennosides* (Senokot*) 8.6 Mg Tablet, 1 TAB PO BID, #30 TAB Prov:RADCHENKO,ERIKA 09/21/18 Hydrocodone Bit-Acetaminophen (Hydrocodone Bit-APAP) 5-325MG Tablet, 1 TAB PO Q4H PRN for .PAIN 1-5, #30 TAB Prov:RADCHENKO,ERIKA 09/21/18 Follow-up Plan follow up with Dr Zamorano in 2 weeks LSO brace x 6 weeks when oob Primary Care Provider Earnest Carlisle Time spent on discharge: > 30 minutes Pending Labs Laboratory Tests Test 09/21/18 06:00 White Blood Count 11.5 10^3/ul (4.8-10.8) Red Blood Count 3.35 10^6/ul (4.20-5.40) Hemoglobin 9.8 g/dl (12.0-16.0) Hematocrit 30.0 % (37.0-47.0) Mean Corpuscular Volume 89.6 fl (82.0-101.0) Mean Corpuscular Hemoglobin 29.3 pg (29.0-33.0) Mean Corpuscular Hemoglobin Concent 32.7 g/dl (32.0-37.0) Red Cell Distribution Width 12.3 % (11.5-14.5) Platelet Count 338 10^3/UL (140-415) Mean Platelet Volume 9.5 fl (7.4-10.4) Immature Granulocytes % 1.400 % (0.001-0.429) Neutrophils % 69.1 % (39.0-77.0) Lymphocytes % 17.9 % (15.0-51.0) Monocytes % 7.6 % (0.0-11.0) Eosinophils % 3.7 % (0.0-7.0) Basophils % 0.3 % (0.0-2.0) Nucleated Red Blood Cells % 0.2 /100WBC (0.0-0.0) Immature Granulocytes # 0.160 10^3/ul (0.0-0.031) Neutrophils # 8.0 10^3/ul (1.6-7.5) Lymphocytes # 2.1 10^3/ul (0.8-2.9) Monocytes # 0.9 10^3/ul (0.3-0.9) Eosinophils # 0.4 10^3/ul (0.0-0.5) Basophils # 0.0 10^3/ul (0.0-0.1) Nucleated Red Blood Cells # 0.0 10^3/ul (0.0-0.0) Sodium Level 139 mmol/L (135-144) Potassium Level 3.2 mmol/L (3.5-5.1) Chloride Level 102 mmol/L (97-110) Carbon Dioxide Level 28 mmol/L (21-31) Anion Gap 9 (5-13) Blood Urea Nitrogen 7 mg/dl (7-20) Creatinine 0.55 mg/dl (0.44-1.00) Est Glomerular Filtrat Rate mL/min > 60 mL/min (>60) Glucose Level 94 mg/dl (70-220) Calcium Level 8.7 mg/dl (8.4-10.2) ERIKA SOLITARIO Sep 21, 2018 22:14
--- NOTE | 2018-10-01 18:22 | OPR ---
DATE OF OPERATION: 09/14/2018 PREOPERATIVE DIAGNOSIS: Degenerative disk disease, lumbosacral spine. POSTOPERATIVE DIAGNOSIS: Degenerative disk disease, lumbosacral spine. PROCEDURE: 1. Anterior retroperitoneal exposure, interbody fusion, L3-L4. 2. Anterior retroperitoneal exposure interbody fusion, L4-L5. 3. Anterior retroperitoneal exposure interbody fusion, L5-S1. SURGEON: Frankie Jaeger MD. COSURGEON: Rosa Maria Zamorano MD. ESTIMATED BLOOD LOSS: 250 mL. INFORMED CONSENT: Risks, benefits, complications, alternative therapies, high-risk nature of the ope ration fully explained to the patient and the family, consent obtained. Risks and benefits have been explained to the patient and the family included, but not limited to bleeding, infection, damage to bowel, damage to ureter, wound infection, wound dehiscence, DVT, PE, loss of limb, loss of life, high -risk nature of the operation fully explained to the patient and all questions answered. OPERATIVE TECHNIQUE: The patient was placed in supine position, prepped and draped in usual sterile fashion. I made a 10 cm incision in left paramedian abdominal wall. Incision was taken down to subc utaneous tissue, which was then opened using electrocautery. Left anterior rectus sheath was opened in the direction of the wound. Left rectus muscle was mobilized superiorly and inferiorly. Posterio r rectus sheath was incised superiorly about 3 cm. Bookwalter retractor was placed retracting the vini wel contents to the right, left rectus muscle to the left. I dissected the left common iliac artery and vein, external iliac artery and vein, the middle sacral vessels, the left iliolumbar vessel. The left lowest segmental vessels were ligated using titanium clips and 2-0 silk ligatures. Exposure fo r L3-L4 and L4-L5 was obtained by retracting the left common iliac artery and vein, external iliac ar rajan and vein, vena cava and aorta to the right. Exposure for L5-S1 was obtained between the right a nd left common iliac artery and vein. We proceeded with the diskectomy and placement of the new cage s. Please refer to Dr. Zamorano's dictation for the details of that operation. After all the x-rays we re satisfactory read by Dr. Zamorano, the needle count and sponge count was correct. The posterior rect us sheath was closed using an 0 Vicryl suture in running fashion. Anterior rectus sheath was closed using a #1 Vicryl suture in running fashion with interrupted sutures in the middle. The wound was ir rigated again and closed in 2 layers of 2-0 Vicryl suture for subcutaneous, Steri-Strips for the skin . The patient tolerated the procedure well. Dictated By: FRANKIE JAEGER MD [facility] Conf#: [id number] DID#: [id number] CC: VIVEK ROSSI MD;*EndCC*
== END 2018-09-21 13:56 | disposition home health service (06) | DRG 455 ==
LOC: FTE 21:48 → MS1 09-14 04:45 → CANRESERV 09-14 07:38 → MS1 09-14 12:33 → ICU 09-14 16:05 → OBSVTOIN 09-14 17:24 → TEL 09-16 20:57
PROVIDERS: ADMIT Internal Medicine; ATTEND Internal Medicine
PROC: 0SG30A0 Fusion of Lumbosacral Joint with Interbody Fusion Device, Anterior Approach, Anterior Column, Open Approach (ICD-10-PCS; 2018-09-14)
PROC: 0SB20ZZ Excision of Lumbar Vertebral Disc, Open Approach (ICD-10-PCS; 2018-09-14)
PROC: 0SB40ZZ Excision of Lumbosacral Disc, Open Approach (ICD-10-PCS; 2018-09-14)
PROC: 0SG10A0 Fusion of 2 or more Lumbar Vertebral Joints with Interbody Fusion Device, Anterior Approach, Anterior Column, Open Approach (ICD-10-PCS; principal; 2018-09-14 09:30)
PROC: 0SG10K1 Fusion of 2 or more Lumbar Vertebral Joints with Nonautologous Tissue Substitute, Posterior Approach, Posterior Column, Open Approach (ICD-10-PCS; 2018-09-15)
PROC: 0SG30K1 Fusion of Lumbosacral Joint with Nonautologous Tissue Substitute, Posterior Approach, Posterior Column, Open Approach (ICD-10-PCS; 2018-09-15)
DX: M54.16 Radiculopathy, lumbar region (principal); G89.29 Other chronic pain; M54.5 Low back pain; M79.7 Fibromyalgia; E78.5 Hyperlipidemia, unspecified; D72.829 Elevated white blood cell count, unspecified; E66.01 Morbid (severe) obesity due to excess calories; Z68.34 Body mass index [BMI] 34.0-34.9, adult
CPT/HCPCS: 72100; 72131; 80048; 80053; 83605; 85014; 85018; 85025; 86850; 86900; 86901; 86920; 87081; 87086; 88304; 96374; 96375; 96376; 97110; 97116; 97163; 97165; 97530; 97535; 99217; C1762; G0378; J0690; J1100; J1170; J1644; J2250; J2270; J2370; J2405; J2710; J2765; J2795; J3010; J3480; J7120